=== PATIENT | male | born 1995 | race Caucasian/White ===

== ENCOUNTER 2016-06-22 08:51 | Emergency (ER) | payer BC, OTHER ==
[~2016-06-22] VITALS: Ht 180.3 cm; Wt 36.8 kg
[~2016-06-22 08:51] MED LIST: ALBUAER2 INH; ATV/1 PO; LEVO125T4 PO; LURA40TA PO
[2016-06-22 08:58] VITALS: Ht 180.3 cm; Wt 36.8 kg
[2016-06-22] MEDS ORDERED: OXYCODONE/ACETAMINOPHEN 5-325 TAB PO STA (09:19)
--- NOTE | 2016-06-22 09:43 | DIAGNOSTIC IMAGING REPORT ---
LEFT SHOULDER MIN 2 VIEWS ROUTINE CLINICAL HISTORY: Left shoulder pain. COMPARISON STUDY: None. FINDINGS: There is a left anterior shoulder dislocation. There may be a small fracture at the anterior-inferior glenoid rim consistent with a Bankart injury. A left clavicle is intact. IMPRESSION: 1. Left anterior shoulder dislocation. 2. Possible small bony Bankart fracture. Electronically signed by: Arpan Rubio M.D. 06/22/2016 9:41 AM Dictated Date/Time: 06/22/2016 9:40 AM
[2016-06-22] MEDS ORDERED: ONDANSETRON INJ 2 MG/ML 2 ML VIAL IV STA (09:48)
[2016-06-22] MEDS ORDERED: SPRIN/30 INH (09:56)
[2016-06-22] MEDS ORDERED: BUSP-8 PO (09:56)
[2016-06-22] MEDS ORDERED: ALBU18002 INH (09:56)
[2016-06-22] MEDS ORDERED: SODIUM CHLORIDE 0.9% 1000ML 1,000 ML IV ONE (10:00)
[2016-06-22] MEDS ORDERED: FENTANYL CITRATE INJ 50 MCG/1 ML 2 ML VIAL IV ONE (10:00)
--- NOTE | 2016-06-22 10:43 | DIAGNOSTIC IMAGING REPORT ---
LEFT SHOULDER 2 VIEWS HISTORY: Left shoulder post reduction. COMPARISON: None. FINDINGS: Patient is status post reduction of the left anterior shoulder dislocation. There is no fracture or dislocation. Soft tissues are unremarkable. No radiopaque foreign bodies. IMPRESSION: No fracture or dislocation within the left shoulder status post reduction. Electronically signed by: Arpan Rubio M.D. 06/22/2016 10:42 AM Dictated Date/Time: 06/22/2016 10:41 AM
[2016-06-22] MEDS ORDERED: HYDR-5688 PO (11:14)
[2016-06-22 11:26] VITALS: BP 146/83; PULSE 99; TEMP 36.8; O2SAT 96
--- NOTE | 2016-06-22 16:17 | EMERGENCY ROOM VISIT NOTE ---
ED Visit Note First contact with patient: 09:14 Anterior Shoulder Dislocation Reduction Indication: anterior shoulder dislocation Verbal consent obtained. Risks and benefits were explained with the usual customary discussion. A time out was taken. Neurovascular examination before the procedure revealed numbness over the anterior deltoid otherwise neurovascularly intact. The left shoulder glenohumeral dislocation was reduced by placing the patient prone and applying gentle downward inline traction on the humerus, with the elbow flexed at 90 degrees, while scapula manipulation was applied. This resulted in an easy reduction without complication. Neurovascular examination after the procedure revealed neurovascularly intact. The patient had significant pain relief and tolerated the procedure well.
--- NOTE | 2016-06-23 12:15 | EMERGENCY ROOM VISIT NOTE ---
ED Visit Note First contact with patient: 09:14 Chief Complaint: Left shoulder pain. History of Present Illness: Mr. Baugh is a 21-year-old white male who ambulates into the ED complaining of left shoulder pain. Historically patient does report he has no significant left shoulder injuries but does report he has had a previous dislocation of his right shoulder. Patient reports he was bench pressing approximately 200 pounds last night, approximately 14 hours ago, felt a popping sensation in his left shoulder and immediately had pain. Since that time his pain has been constant and gradually increasing in intensity. He describes it as a sharp discomfort. He rates his discomfort 8/10. His pain is nonradiating. Palpation of the glenoid humeral joint and any attempts to move the glenoid humeral joint increases his discomfort. He has not identified any alleviating factors related to the pain. He reports she's taken 2 doses of 800 mg of ibuprofen since the injury occurred and has had no relief. He does feel like the pain he is experiencing is similar to his previous right shoulder dislocation. Associated with his pain he reports a mild numbness sensation of the upper arm and paresthesias over the radial distribution of the posterior hand. He denies fevers, chills, skin eruptions, skin color changes, neck pain, recent direct neck or shoulder trauma, elbow pain, forearm pain, left hand weakness, abdominal pain, nausea, vomiting, shortness of breath. Review of Systems: As noted above in history of present illness. 8 body systems were reviewed and found to be negative as noted above. Past Medical History: Asthma. Current Medications: Albuterol Allergies to Medications: Holly, Zyrtec, Claritin. Social History: Patient is currently employed; he feels safe in his home environment; he denies tobacco use; he admits to alcohol use. Physical Examination: Vital Signs: Date Time Temp Pulse Resp B/P Pulse Ox O2 Delivery O2 Flow Rate FiO2 06/22/16 11:26 36.8 99 16 146/83 96 06/22/16 10:47 99 16 146/83 96 Room Air 06/22/16 08:58 36.8 109 20 156/96 95 Room Air GENERAL: 21-year-old male in moderate distress due to pain, nontoxic-appearing, afebrile and hemodynamically stable. NEUROLOGICAL: Awake, alert and oriented to person, place and time. Answering questions appropriately and following commands. Normal gait. SKIN: Warm, dry and pink. No soft tissue trauma noted. BACK: No tenderness over the bony cervical or thoracic spine. Full range of motion of the cervical spine. THORAX: Lungs sounds are clear to auscultation and equal bilaterally with symmetrical chest wall. No wheezing, rales or rhonchi. No crepitus, tenderness , subcutaneous air or deformities noted. LEFT UPPER EXTREMITY: Obvious deformity of the glenoid humeral joint with the radial head displaced anteriorly and slightly inferiorly. There is also tenderness throughout the glenoid humeral joint. He has no tenderness over the clavicle or the acromioclavicular joint. No tenderness over the scapula. No tenderness extending from the mid humerus, through the elbow, forearm and hand. With the shoulder stabilize he does have flexion and extension of the elbow, pronation and supination of the forearm, flexion, extension and radial ulnar deviation of the and flexion and extension of all finger joints. On sensory testing he does have decreased sensation to light touch over the lateral subdeltoid area. Although he complains of paresthesias in the hand he is able to distinguish light and sharp sensations. Radial and ulnar pulses are intact and equal bilaterally. The hand is warm and pink and capillary refill is brisk. On reevaluation after reduction patient has full return of sensation in the subdeltoid area and resolution of paresthesias in the hand prior to discharge. The hand remained warm and pink with brisk capillary refill and pulses. He continues to able to distinguish light and sharp sensations throughout the hand. ED Course: Patient is assessed as noted above. Patient was given 2 Percocet 5/325 mg tablets by mouth for pain. Left Shoulder X-Rays: Were read by myself and the radiologist and shows an anterior dislocation of the glenoid humeral joint. An IV lock was initiated and patient was hydrated with normal saline; he received 100 g of fentanyl IV and 4 mg of Zofran IV. Patient's dislocation was reduced by Dr. Franco and myself easily on the first attempt. Left Shoulder X-Rays: Were read by myself and the radiologist showing no acute fractures or dislocations; successful reduction of shoulder joint. Patient was placed in a shoulder immobilizer and educated about tonight's findings; he verbalizes understanding and agreement with this plan. Patient was educated about tonight's findings and instructed on his treatment plan; he verbalizes understanding and agreement with this plan. Clinical Impression: Left shoulder dislocation. Decision-Making: Glenoid humeral dislocation, acromioclavicular joint separation , humeral head fracture and other causes. Disposition: Patient discharged home in stable condition accompanied by male friend; prior to departure he was reassessed and subjectively reported he was feeling better and rated his discomfort 6/10. Plan: Comfort measures including rest, ice, immobilizer use and a sliding pain medication scale of ibuprofen, acetaminophen and [place] were discussed with the patient. Patient was encouraged to follow-up with his medical care evaluation specialist for definitive care and treatment. Patient was encouraged return the ED for worsening/uncontrolled pain, redislocation, arm weakness/numbness/tingling or any new/concerning symptoms.
== END 2016-06-22 11:29 | disposition home or self-care (01) ==
LOC: C.EDB 08:52
DX: S43.015A Anterior dislocation of left humerus, initial encounter (principal); J45.909 Unspecified asthma, uncomplicated; Y93.B1 Activity, exercise machines primarily for muscle strengthening; Y99.8 Other external cause status

== ENCOUNTER → 2016-06-27 | Outpatient (CLI) | payer OTHER ==
[~2016-06-27] MED LIST changes: +ALBU18002 INH; -ALBUAER2 INH; -ATV/1 PO; +BUSP-8 PO; +HYDR-5688 PO; +SPRIN/30 INH
--- NOTE | 2016-06-27 13:46 | DIAGNOSTIC IMAGING REPORT ---
FLUOROSCOPICALLY GUIDED LEFT SHOULDER ARTHROGRAM PRE-MRI CLINICAL HISTORY: Left shoulder pain. History of dislocation. COMPARISON STUDY: 06/22/2016 FINDINGS: A timeout was performed. The risks of the procedure was explained the patient informed consent was obtained. The patient was prepped and draped in sterile fashion. The skin was anesthetized 1% lidocaine. A 22-gauge needle was introduced the joint space. The stylette was removed, there was evidence of a hemarthrosis. An extra of Optiray 300 and gadolinium was instilled into the joint space. There were no immediate complications. IMPRESSION: Successful fluoroscopically guided left shoulder arthrographic injection pre-MRI. Electronically signed by: Steffen Holly M.D. 06/27/2016 1:44 PM Dictated Date/Time: 06/27/2016 1:42 PM
--- NOTE | 2016-06-27 14:20 | DIAGNOSTIC IMAGING REPORT ---
POST ARTHROGRAM MRI OF THE LEFT SHOULDER CLINICAL HISTORY: Left shoulder pain status post dislocation COMPARISON STUDY: Conventional radiographic study dated 06/22/2016 FINDINGS: Imaging was performed following a gadolinium arthrogram. Imaging was obtained in the sagittal, coronal, and axial planes. The rotator cuff tendon appears normal. The bicipital tendon appears normal. There is a Hill-Sachs deformity of the humeral head. There is a curvilinear loose body within the superior aspect of the glenohumeral joint. This may represent a fracture fragment arising from the humeral head. There is a Bankart fracture involving the anterior inferior glenoid rim. IMPRESSION: 1. Bankart fracture involving the anterior inferior glenoid rim 2. Hill-Sachs deformity involving the humeral head 3. Curvilinear loose body within the superior aspect of the glenohumeral joint. The etiology of this bony fragment is not known, but potentially arises from the humeral head. Electronically signed by: Steffen Holly M.D. 06/27/2016 2:19 PM Dictated Date/Time: 06/27/2016 2:09 PM
== END | disposition home or self-care (01) ==
LOC: C.MRIBC 12:51
PROVIDERS: ATTEND Orthopaedic Surgery
DX: S42.142A Displaced fracture of glenoid cavity of scapula, left shoulder, initial encounter for closed fracture (principal); X58.XXXA Exposure to other specified factors, initial encounter; M21.922 Unspecified acquired deformity of left upper arm; M24.012 Loose body in left shoulder

== ENCOUNTER 2018-09-28 06:29 | Inpatient (IN) ==
--- OUTSIDE RECORDS SUMMARY | 2018-09-28 06:32 | External Medical Summary | Continuity of Care Document ---
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) Allergies and Adverse Reactions Holly TABS (Allergy) Reaction: Hives Claritin TABS (Allergy) Reaction: Hives ZyrTEC Allergy TABS (Allergy) Reaction: Hives Medications Latuda 40 MG Oral Tablet Refills: 0 Albuterol AERS Refills: 0 Procedures History of Shoulder Repair Status: Compl eted History of Nose Surgery Status: Complete d Immunizations Immunizations not documented Family History Grandfather Family history of malignant neoplasm of kidney (V16.51) (Z80 .51) Status: Active aunt Family history of Colon cancer (153.9) (C18.9) Status: Activ e Social History - Smoking Status Never smoker Plan of Treatment Planned Observations Planned Goals not documented Results No Known Results Results not documented Encounters Appointment; Liam Catherine M.D. 04-Dec-2015 12:45 Encounter Diagnosis: Problem not documented
[2018-09-28] MEDS ORDERED: LORazepam 2 MG/4 ML VIAL IV STA ×3 (06:42→12:43)
[2018-09-28] MEDS ORDERED: SODIUM CHLORIDE 0.9% 1000ML 1,000 ML IV SCH (06:45)
[2018-09-28] MEDS ORDERED: MULTI-VITAMIN INFUSION 10 ML, THIAMINE HCL 100 MG, FOLIC ACID 1 MG in SODIUM CHLORIDE 0... IV SCH (06:45)
[2018-09-28 07:16] LABS: Basophils # (auto) 0.04 K/uL (0-0.2); Basophils % (auto) 1.2 %; Eosinophils # (auto) 0.07 K/uL (0-0.5); Eosinophils % (auto) 2.1 %; Hematocrit (blood only) 44.4 % (42-52); Hemoglobin 16.6 g/dL (14.0-18.0); Immature Granulocytes # (auto) 0.01 K/uL (0.00-0.02); Immature Granulocytes % (auto) 0.3 %; Lymphocytes # (auto) 1.36 K/uL (1.2-3.4); Lymphocytes % (auto) 40.6 %; Mean Corpuscular Hgb Conc 37.4 g/dL (32-36); Mean Corpuscular Volume 94.1 fL (80-100); Mean Platelet Volume 9.4 fL (7.4-10.4); Monocytes # (auto) 0.24 K/uL (0.11-0.59); Monocytes % (auto) 7.2 %; Neutrophils # (auto) 1.63 K/uL (1.4-6.5); Neutrophils % (auto) 48.6 %; Platelet Count 221 K/uL (130-400); RDW Coefficient of Variation 12.9 % (11.5-14.5); RDW Standard Deviation 44.6 fL (36.4-46.3); Red Blood Count 4.72 M/uL (4.7-6.1); White Blood Count 3.35 K/uL (4.8-10.8)
[2018-09-28 07:40] LABS: Salicylate < 1.7 mg/dl (2.8-20)
[2018-09-28 07:46] LABS: Albumin Level 4.1 gm/dl (3.4-5.0); BUN Creatinine Ratio 6.6 (10-20); Calcium 9.1 mg/dl (8.5-10.1); Creatinine Clr Calc Pharmacy 94.4 ml/min; Est GFR (African American) 71.6; Est GFR (Non-African American) 61.7
[2018-09-28 07:48] LABS: Acetaminophen < 2 ug/ml (10-30)
[2018-09-28 07:50] LABS: Albumin Globulin Ratio 1.1 (0.9-2); Bilirubin,Total 0.9 mg/dl (0.2-1); Globulin 3.7 gm/dl (2.5-4.0); Total Protein 7.8 gm/dl (6.4-8.2)
[2018-09-28 08:17] LABS: T4 Free Thyroxine 1.01 ng/dl (0.8-1.6)
[2018-09-28 08:21] LABS: Potassium 3.6 mmol/L (3.5-5.1)
[2018-09-28 09:28] LABS: Appearance Urine Clear (Clear); Bilirubin Urine Negative (Negative); Blood Urine Negative (Negative); Color Urine Yellow; Glucose Urine UA Negative (Negative); Ketones Urine Negative (Negative); Leukocyte Esterase Urine Negative (Negative); Nitrite Urine Negative (Negative); Protein Urine Negative (Negative); Specific Gravity Urine 1.021 (1.000-1.030); Urobilinogen Urine Negative (Negative)
[2018-09-28 10:10] LABS: Amphetamines+Metham, Urine Neg (Neg); Barbiturates, Urine Neg (Neg); Benzodiazepine, Urine Neg (Neg); Cocaine, Urine Neg (Neg); MDMA (Ecstacy), Urine Neg (Neg); Methadone, Urine Neg (Neg); Opiate, Urine Neg (Neg); Phencyclidine, Urine Neg (Neg)
[2018-09-28] MEDS ORDERED: cloNIDine HCl 0.1 MG TAB PO ONE (11:14)
--- NOTE | 2018-09-28 12:01 | History & Physical Report ---
Date of Service September 28, 2018 Assessment & Plan (1) Alcohol withdrawal: - Received IV banana bag and IV Ativan 4 mg while in the ER - Start MVI, PO folic acid and thiamine - librium taper and IV ativan prn to avoid further withdrawal sx - tremor has improved, anxiety is worse now with admission. - Pt was referred for inpatient rehab - there are detox beds available at [facility] for the patient to go there today however the patient is refusing to go there due to financial situation and not being able to be off work. He states their detox program of even 5 days is too long to be out of work, and would not be intrested in completing their 28 day program for rehab afterwards. - List of facilities for future outpatient has been provided to the patient - Follows with Traci Watkins for depression and anxiety - Recommend he re-establishes care with counselor for support and to develope more coping skills regarding alcoholism - Alcohol cessation encouraged (2) Hypertension: - Continue clonidine for HTN, seconday to acute alcohol withdrawal. (3) Elevated transaminase level: - Monitor am LFTs - Secondary to etoh use as above. (4) Hypothyroidism: - TSH elevated upon admission, continue levothyroxine 125 mg daily. Follow up TSH in 3 mo. (5) DVT prophylaxis: - teds, ambulatory History of Present Illness Primary Care Provider: NO PCP This is a 23-year-old male with PMHx of depression, anxiety, alcohol abuse. The patient notes that alcohol use started when he entered college at [employer]. He is now drinking 10 shots every evening to help him fall asleep. He does wake up in the morning feeling like he needs a drink and hs 2 shots or 2 beers. Patient reports having decided to stop drinking on Thursday night. Last evening however, patient had 2 beers and took ZzzQuil to help fall asleep as his anxiety, tremors, chills were so bad. The patient reported to the ER today due to increased anxiety and tremors. He has received a banana bag, and Ativan 4 mg. Patient's blood pressure is noted to be elevated as high as 181/92. He has also recently graduated from [employer]ICU and has just started a new job, and has attempted to stop drinking for this reason as well. Patient lives at home with his ricardo and her 2yo daughter. Patient denies any mood swings, anger outbursts or specific irritability regarding stopping alcohol use. He reports anxiety is much more of a problem. SHx: Patient follows with Traci Herring PA-C, at [facility] for psychiatric needs. He has also seen a counselor at [facility] in the past for alcohol use, but has not followed him for a few years. Patient denies any recent medication changes other than increased dose of BuSpar for his anxiety. The patient reports he is not interested in going to an inpatient rehab facility directly from our ER as he does not have the money, nor at the time to take off from his new job for this. Patient is requesting admission here and will proceed with outpatient rehab on his own. Patient has been given a list of inpatient and outpatient facilities addresses and numbers. Allergies Allergy/AdvReac Type Severity Reaction Status Date / Time cetirizine Allergy Intermediate hives Verified 09/28/18 07:23 fexofenadine Allergy Intermediate hives Verified 09/28/18 07:23 loratadine Allergy Intermediate hives Verified 09/28/18 07:23 Home Medications Home Medications Medication Instructions Recorded Confirmed Type albuterol sulfate 2 puff INHALATION QID PRN 09/28/18 09/28/18 History buspirone 10 mg PO BID 09/28/18 09/28/18 History clonazepam 1 mg PO DAILY PRN 09/28/18 09/28/18 History guanfacine 0 mg PO DAILY 09/28/18 09/28/18 History levothyroxine 125 mcg PO DAILY 09/28/18 09/28/18 History lurasidone [Latuda] 60 mg PO DAILY 09/28/18 09/28/18 History omeprazole magnesium [Prilosec OTC] 20 mg PO DAILY PRN 09/28/18 09/28/18 History tiotropium bromide [Spiriva with 1 cap INHALATION HS 09/28/18 09/28/18 History HandiHaler] Past Med/Surg History Medical History Hypothyroidism Elevated transaminase level Alcohol withdrawal (Acute) Hypertension (Acute) Creatinine elevation (Chronic) Asthma Anxiety (Chronic) Surgical History History of arthroscopy of shoulder History of nasal surgery Social History Preferred Language: Setswana Communication Ability: Effective Beliefs That Will Affect Care: None Current Living Situation: Significant Other Current Living Situation Comment: holden s/o Other Information That Helps Us Care for You: No Feels Safe at Home: Yes Safety Concerns: Feels Safe At This Time Smoking Status: Never smoker Hx Alcohol Use: Yes Alcohol type: beer and hard liquor Alcohol Intake Frequency Comment: 6-8 Hx Substance Use: No Review of Systems Review of Systems: Constitutional: As per HPI Eyes: No diplopia, no worsening or blurred vision ENT: normal hearing, no trouble swallowing Respiratory: No cough, sputum, dyspnea at rest or on exertion Cardiovascular: No chest pain, tightness or palpitations Abdomen: No pain, + nausea, no vomiting, diarrhea or constipation Musculoskeletal: No joint pain, calf pain, swelling Neurologic: No weakness, numbness/tingling, or balance problems Psychiatric: + Anxiety or depression Skin: No rash or itch Physical Exam Physical Exam: General: awake, alert, + anxious, + overweight with BMI of 35 Head: Normocephalic, atraumatic ENT: PERRL, EOMI, no pharyngeal exudate, mucous membranes moist Chest: Clear to auscultation, on room air, no adventitious breath sounds Cardiac:Tachycardic, HR in 90s to 100s, no murmur, no JVD, normal peripheral pulses, good capillary refill Abdominal: NABS x 4 quadrants, soft, nontender to palpation, no rebound, guarding or tenderness Extremities: Normal inspection, no peripheral edema or erythema, calfs nontender to palpation Psych: Normal mood and affect Neuro: AAO x 3, strength intact bilaterally and related 5/5, no motor deficits, speech is clear, no peripheral sensory deficits Results & Data Vital Signs (Past 12 Hours) Vital Signs Temp Pulse Pulse Resp BP BP Pulse Ox 09/28/18 11:25 96 H 22 181/92 H 98 09/28/18 10:40 89 26 H 179/133 H 98 09/28/18 09:43 92 H 20 166/119 H 98 09/28/18 08:21 85 22 160/110 H 98 09/28/18 07:24 94 H 19 162/114 H 95 09/28/18 06:54 90 20 177/118 H 98 09/28/18 06:32 36.8 C 90 20 175/122 H 98 Code Status & VTE Plan Code Status Full Code Supervising Physician Co-Signing Physician Notes Pt seen/examined following MICHAEL Bowen. Orders and plan of admission formulated with MICHAEL. 23 y/o M Hx ETOH abuse, depression. Presenting for symptoms related to withdrawal. The pt was examined by the medical team and offered admission to [facility] which he declined as he thought he would be there for too long. He is starting a new job and hoping for a more rapid detox. I ahd infomed him that we did not do anything differnetly in the hospital that would expedite the process. He has mild LFT elevation on labs and a creatinine which is chronically over 1.5 with a normal GFR. He claims he has 6-8 alcoholic beverages per day. OE AAO x 3 S1,2 R CTAB NT, ND No CCE No deficits No tremors after receiving Ativan P: Admitted for Detox - Lorazepam, Librium, Thiamine, Folic, [id number] Cont Latuda for Depression Psychiatry consulted (1) Alcohol withdrawal Complication of substance-induced condition: with unspecified complication Qualified Code(s): F10.239 - Alcohol dependence with withdrawal, unspecified (2) Hypertension Hypertension type: unspecified Qualified Code(s): I10 - Essential (primary) hypertension
[2018-09-28] MEDS ORDERED: ONDANSETRON INJ 2 MG/ML 2 ML VIAL IV PRN (13:16)
[2018-09-28] MEDS ORDERED: ALBUTEROL HFA 8 GM INHALER INH PRN (13:16)
[2018-09-28] MEDS ORDERED: ACETAMINOPHEN 500 MG TAB PO PRN (13:16)
--- NOTE | 2018-09-28 13:19 | History & Physical Report ---
Date of Service September 28, 2018 History of Present Illness Chief Complaint: Alcohol withdrawal Primary Care Provider: KATALINA PCP 23 y/o M Hx Depression, asthma, hypothyroidism, ETOH abuse. Presenting with early withdrawal symptoms requesting detox. This pt was offered direct admission to [facility] for detox followed by rehab. He declined as he is starting a new job and was hoping to get out of the hospital in a few days. The minimum stay at [facility] is apparently 5 days. PMH: 1) Depression 2) Hypothryroidism 3) Asthma 4) ETOH abuse Social: States he has 6-8 alcoholic beverages daily. Family: Allergies Allergy/AdvReac Type Severity Reaction Status Date / Time cetirizine Allergy Intermediate hives Verified 09/28/18 07:23 fexofenadine Allergy Intermediate hives Verified 09/28/18 07:23 loratadine Allergy Intermediate hives Verified 09/28/18 07:23 Home Medications Home Medications Medication Instructions Recorded Confirmed Type albuterol sulfate 2 puff INHALATION QID PRN 09/28/18 09/28/18 History buspirone 10 mg PO BID 09/28/18 09/28/18 History clonazepam 1 mg PO DAILY PRN 09/28/18 09/28/18 History guanfacine 0 mg PO DAILY 09/28/18 09/28/18 History levothyroxine 125 mcg PO DAILY 09/28/18 09/28/18 History lurasidone [Latuda] 60 mg PO DAILY 09/28/18 09/28/18 History omeprazole magnesium [Prilosec OTC] 20 mg PO DAILY PRN 09/28/18 09/28/18 History tiotropium bromide [Spiriva with 1 cap INHALATION HS 09/28/18 09/28/18 History HandiHaler] Past Med/Surg History Medical History Creatinine elevation (Chronic) Asthma Anxiety (Chronic) Surgical History History of arthroscopy of shoulder History of nasal surgery Social History Preferred Language: Icelandic Communication Ability: Effective Beliefs That Will Affect Care: None Current Living Situation: Significant Other Current Living Situation Comment: holden s/o Other Information That Helps Us Care for You: No Feels Safe at Home: Yes Safety Concerns: Feels Safe At This Time Smoking Status: Never smoker Hx Alcohol Use: Yes Alcohol type: beer and hard liquor Alcohol Intake Frequency Comment: 6-8 Hx Substance Use: No Review of Systems Gen: Denies fevers, night sweats, rigors, fatigue, malaise, weight loss/gain ENT: Denies congestion, throat pain, hearing loss Eyes: Denies acute visual changes CV: Denies CP, palpitations Pulmonary: Denies SOB, cough, wheezing GI: Denies N/V, diarrhea, constipation Neuro: Denies acute or unilateral weakness, acute gait impairment, headache or acute visual changes Musculoskeletal: Denies joint pain, inflammation Endocrine: Denies polydipsia, polyuria Skin: Denies acute rashe or ulcers Physical Exam Physical Exam: General: AAO x 3, no distress ENT: No erythema or exudates, no thrush Eyes: RAGHAVENDRA, EOMI Head and neck: Normocephalic, atraumatic, No JVD, neck is supple. Chest/heart: Nontender, S1,2, RRR, no murmurs, no gallops Lungs: CTAB, no wheezing or crackles Abdomen: Nontender, nondistended, BS+ Neuro: AAO x 3, speech is clear, no unilateral weakness or loss of sensation, coordination intact Musculoskeletal: No joint inflammation, muscle tenderness, FROM Skin: No acute rashes or ulcers Extremities: No clubbing, cyanosis, edema Results & Data Vital Signs (Past 12 Hours) Vital Signs Temp Pulse Pulse Resp BP BP Pulse Ox 09/28/18 12:24 99 H 18 163/99 H 97 09/28/18 11:25 96 H 22 181/92 H 98 09/28/18 10:40 89 26 H 179/133 H 98 09/28/18 09:43 92 H 20 166/119 H 98 09/28/18 08:21 85 22 160/110 H 98 09/28/18 07:24 94 H 19 162/114 H 95 09/28/18 06:54 90 20 177/118 H 98 09/28/18 06:32 98.2 F 90 20 175/122 H 98
[2018-09-28] MEDS: LORazepam 2 MG/4 ML VIAL IV PRN ×3 (13:56→23:41)
--- NOTE | 2018-09-28 14:00 | Emergency Department Note ---
Entered by Marissa Fitzgerald acting as a scribe for Vania Glaser MD History of Present Illness General Chief complaint: Alcohol Withdrawal Stated complaint: ANXIETY,NAUSEA Source: patient Mode of arrival: ambulatory Limitations: no limitations History of Present Illness Provider complaint: alcohol withdrawal Onset (ago): day(s) (yesterday) Location: head (generalized) Pain Consistency: + other (episode) Quality: + other (suspected) Relieved By: not by other (alcohol) Associated symptoms: + other (shaky, restless, palpitations) Treatments prior to arrival: other (alcohol) The patient is a 23 year old male who presents to the ED with complaints of a suspected alcohol withdrawal that began about 2 days ago. The patient reports that he drinks around 6-8 drinks daily and 2 days ago "decided it was time to quit." He states that since quitting, he has been anxious, shaky, restless, and "can feel his heart racing." He notes that he had 1 drink last night around 2200 to try and alleviate his symptoms but reports it did not help. He denies any tobacco or substance use. He states that he has a history of asthma and anxiety. Home Medications Home Medications Medication Instructions Recorded Confirmed Type Latuda 60 mg PO DAILY 09/28/18 09/28/18 History Prilosec OTC 20 mg PO DAILY PRN 09/28/18 09/28/18 History Spiriva with HandiHaler 1 cap INHALATION HS 09/28/18 09/28/18 History albuterol sulfate 2 puff INHALATION QID PRN 09/28/18 09/28/18 History buspirone 10 mg PO BID 09/28/18 09/28/18 History clonazepam 1 mg PO DAILY PRN 09/28/18 09/28/18 History chlordiazepoxide HCl 25 mg PO TID #13 cap 09/30/18 Rx folic acid 1 mg PO QAM 30 Days #30 tab 09/30/18 Rx levothyroxine 125 mcg PO DAILY 30 Days #30 tab 09/30/18 Rx metoprolol succinate 25 mg PO DAILY #30 ea 09/30/18 Rx thiamine HCl (vitamin B1) [Vitamin 100 mg PO QAM 30 Days #30 tab 09/30/18 Rx B-1] Allergies Allergy/AdvReac Type Severity Reaction Status Date / Time cetirizine Allergy Intermediate hives Verified 09/28/18 07:23 fexofenadine Allergy Intermediate hives Verified 09/28/18 07:23 loratadine Allergy Intermediate hives Verified 09/28/18 07:23 Past Med/Surg History Medical History Hypothyroidism Alcohol withdrawal (Acute) Hypertension (Acute) Anxiety (Chronic) Creatinine elevation Surgical History History of arthroscopy of shoulder History of nasal surgery Social History Preferred Language: Kinyarwanda Communication Ability: Effective Beliefs That Will Affect Care: None Current Living Situation: Significant Other Current Living Situation Comment: holden s/o Other Information That Helps Us Care for You: No Feels Safe at Home: Yes Safety Concerns: Feels Safe At This Time Smoking Status: Never smoker Hx Alcohol Use: Yes Alcohol type: beer and hard liquor Alcohol Intake Frequency Comment: 6-8 Hx Substance Use: No Review of Systems See HPI for pertinent positives & negatives. and A total of 10 systems reviewed and were otherwise negative Physical Exam Vital Signs Vital Signs - 24 hr 09/30/18 07:00 09/30/18 07:36 09/30/18 09:23 Temperature 36.4 C L Temperature Source Oral Pulse Rate 72 Pulse Rate [Finger] 96 H Respiratory Rate 20 Blood Pressure [Left Arm] 144/101 H Blood Pressure [Right Arm] 148/99 H Blood Pressure Mean [Left Arm] 115 Blood Pressure Mean [Right Arm] 115 Blood Pressure Position [Left Arm] Sitting Blood Pressure Position [Right Arm] Sitting Pulse Oximetry 97 Oxygen Delivery Method Room Air 09/30/18 11:53 09/30/18 15:05 09/30/18 15:26 Temperature 36.5 C 36.4 C L 36.4 C L Temperature Source Oral Oral Pulse Rate Pulse Rate [Finger] 62 99 H 99 H Respiratory Rate 18 18 18 Blood Pressure [Left Arm] 155/117 H 155/117 H Blood Pressure [Right Arm] 138/91 138/91 Blood Pressure Mean [Left Arm] 129 Blood Pressure Mean [Right Arm] 106 Blood Pressure Position [Left Arm] Lying Blood Pressure Position [Right Arm] Lying Pulse Oximetry 95 98 98 Oxygen Delivery Method Room Air 09/30/18 19:01 Temperature 36.4 C L Temperature Source Pulse Rate Pulse Rate [Finger] 99 H Respiratory Rate 18 Blood Pressure [Left Arm] 155/117 H Blood Pressure [Right Arm] 138/91 Blood Pressure Mean [Left Arm] Blood Pressure Mean [Right Arm] Blood Pressure Position [Left Arm] Blood Pressure Position [Right Arm] Pulse Oximetry 98 Oxygen Delivery Method Vital signs reviewed. The patient is tachycardic and hypertensive. General: Anxious appearing, in no significant distress. HEENT: No scleral icterus, PERRLA, neck supple. Atraumatic. Cardiovascular: Tachycardic, no extra sounds. Pulmonary: Clear to auscultation bilaterally, normal work of breathing. Abdomen: Soft, nontender, nondistended, positive bowel sounds. Musculoskeletal: Atraumatic, no peripheral edema. Neurologic: Patient awake alert and oriented x 3, full strength in all 4 extremities. Cranial nerves 2 through 12 grossly intact. Some tremor noted, particularly the BUE Skin: Warm, diaphoretic, no rash Course 0652: Past medical records reviewed. The patient was evaluated in room B2. A complete history and physical examination was performed. 1019: I updated the patient on his results and he is agreeable with the treatment plan. 1034: I discussed the patients case with Veronica Bowen PA-C [facility] Hospitalist. She will evaluate the patient for further management. Administered Medications Discontinued Medications Buspirone HCl (Buspar) 10 mg PO BID [facility] Stop: 10/28/18 20:59 Last Admin: 09/30/18 07:52 Dose: 10 mg Documented by: [id number] Admin: 09/29/18 20:55 Dose: 10 mg Documented by: [id number] Admin: 09/29/18 07:53 Dose: 10 mg Documented by: [id number] Admin: 09/28/18 21:04 Dose: 10 mg Documented by: [id number] Chlordiazepoxide HCl (Librium) 25 mg PO TID VONNIE Stop: 10/28/18 13:59 Last Admin: 09/30/18 14:38 Dose: 25 mg Documented by: [id number] Admin: 09/30/18 07:54 Dose: 25 mg Documented by: [id number] Admin: 09/29/18 20:55 Dose: 25 mg Documented by: [id number] Admin: 09/29/18 13:43 Dose: 25 mg Documented by: [id number] Admin: 09/29/18 08:01 Dose: 25 mg Documented by: [id number] Admin: 09/28/18 21:04 Dose: 25 mg Documented by: [id number] Admin: 09/28/18 14:34 Dose: 25 mg Documented by: [id number] Chlordiazepoxide HCl (Librium) 25 mg PO NOW ONE Stop: 09/30/18 17:18 Last Admin: 09/30/18 17:40 Dose: 25 mg Documented by: [id number] Clonidine HCl (Catapres) 0.2 mg PO NOW ONE Stop: 09/28/18 11:15 Last Admin: 09/28/18 11:48 Dose: 0.2 mg Documented by: [id number] Clonidine HCl (Catapres) 0.1 mg PO Q8H PRN PRN Reason: SBP > 165 Stop: 10/28/18 13:15 Last Admin: 09/30/18 18:29 Dose: 0.1 mg Documented by: [id number] Admin: 09/29/18 15:23 Dose: 0.1 mg Documented by: [id number] Admin: 09/28/18 23:39 Dose: 0.1 mg Documented by: [id number] Folic Acid (Folvite) 1 mg PO QAM [facility] Stop: 10/28/18 14:29 Last Admin: 09/30/18 07:52 Dose: 1 mg Documented by: [id number] Admin: 09/29/18 07:51 Dose: 1 mg Documented by: [id number] Admin: 09/28/18 15:50 Dose: 1 mg Documented by: [id number] Lorazepam (Ativan) 2 mg in 4 mls @ 4 mls/min IV NOW STA Stop: 09/28/18 06:43 Last Admin: 09/28/18 07:17 Dose: 4 mls/min Documented by: [id number] Sodium Chloride (Nss 1000ml) 1,000 mls @ 999 mls/hr IV .Q1H1M [facility] Stop: 09/28/18 07:45 Last Infusion: 09/28/18 08:15 Dose: 0 mls/hr Documented by: [id number] Admin: 09/28/18 07:14 Dose: 999 mls/hr Documented by: [id number] Multivitamins 10 ml/ Thiamine HCl 100 mg/ Folic Acid 1 mg/Sodium Chloride 1,011.2 mls @ 1,011.2 mls/hr IV .Q1H VONNIE Stop: 09/28/18 07:44 Last Infusion: 09/28/18 08:15 Dose: 0 mls/hr Documented by: [id number] Admin: 09/28/18 07:14 Dose: 1,011.2 mls/hr Documented by: [id number] Lorazepam (Ativan) 2 mg in 4 mls @ 4 mls/min IV NOW STA Stop: 09/28/18 08:24 Last Admin: 09/28/18 09:42 Dose: 4 mls/min Documented by: [id number] Lorazepam (Ativan) 2 mg in 4 mls @ 4 mls/min IV NOW STA Stop: 09/28/18 12:44 Last Admin: 09/28/18 14:13 Dose: Not Given Documented by: [id number] Lorazepam (Ativan) 2 mg in 4 mls @ 4 mls/min IV Q4H PRN PRN Reason: Alcohol Withdrawal Stop: 10/28/18 13:15 Last Admin: 09/29/18 22:06 Dose: 4 mls/min Documented by: [id number] Admin: 09/29/18 17:59 Dose: 4 mls/min Documented by: [id number] Admin: 09/29/18 14:12 Dose: 4 mls/min Documented by: [id number] Admin: 09/29/18 07:54 Dose: 4 mls/min Documented by: [id number] Admin: 09/28/18 23:41 Dose: 4 mls/min Documented by: [id number] Admin: 09/28/18 19:21 Dose: 4 mls/min Documented by: [id number] Admin: 09/28/18 13:56 Dose: 4 mls/min Documented by: [id number] Potassium Chloride/Dextrose/Sod Cl (D5nss + 20meq Kcl) 20 meq in 1,000 mls @ 10 0 mls/hr IV .Q10H VONNIE Stop: 09/29/18 19:15 Last Infusion: 09/29/18 12:28 Dose: 0 mls/hr Documented by: [id number] Admin: 09/29/18 07:54 Dose: 100 mls/hr Documented by: [id number] Infusion: 09/29/18 07:54 Dose: 100 mls/hr Documented by: [id number] Admin: 09/28/18 23:39 Dose: 100 mls/hr Documented by: [id number] Infusion: 09/28/18 23:39 Dose: 100 mls/hr Documented by: [id number] Admin: 09/28/18 14:45 Dose: 100 mls/hr Documented by: [id number] Levothyroxine Sodium (Synthroid) 125 mcg PO DAILYBB [facility] Stop: 10/29/18 06:29 Last Admin: 09/30/18 07:31 Dose: 125 mcg Documented by: [id number] Admin: 09/29/18 05:47 Dose: 125 mcg Documented by: [id number] Lurasidone HCl (Latuda) 60 mg PO DAILY [facility] Stop: 10/29/18 08:59 Last Admin: 09/29/18 10:31 Dose: Not Given Documented by: [id number] Lurasidone HCl (Latuda) 60 mg PO [facility] Stop: 10/29/18 20:59 Last Admin: 09/29/18 20:56 Dose: 60 mg Documented by: [id number] Metoprolol Succinate (Toprol Xl) 25 mg PO QAM [facility] Stop: 10/30/18 15:29 Last Admin: 09/30/18 15:34 Dose: 25 mg Documented by: [id number] Pantoprazole Sodium (Protonix) 40 mg PO QA PRN PRN Reason: Heartburn Stop: 10/28/18 14:29 Last Admin: 09/29/18 07:53 Dose: 40 mg Documented by: [id number] Potassium Chloride (Klor-Con M20) 20 meq PO NOW STA Stop: 09/30/18 09:17 Last Admin: 09/30/18 10:56 Dose: 20 meq Documented by: [id number] Thiamine HCl (Vitamin B-1) 100 mg PO QAM [facility] Stop: 10/28/18 14:29 Last Admin: 09/30/18 07:52 Dose: 100 mg Documented by: [id number] Admin: 09/29/18 07:53 Dose: 100 mg Documented by: [id number] Admin: 09/28/18 15:50 Dose: 100 mg Documented by: [id number] Tiotropium [place] (Spiriva) 1 puffs INH [facility] Stop: 10/28/18 20:59 Last Admin: 09/29/18 20:56 Dose: 1 puffs Documented by: [id number] Admin: 09/28/18 21:04 Dose: 1 puffs Documented by: [id number] Medical Decision Making Differential Diagnosis Differential diagnosis includes: toxicologic, infection, hypoglycemia, electrolyte abnormalities, cardiac sources, intracerebral event, neurologic, alcohol withdrawal, as well as others were entertained. Medical Records Attestation: I reviewed the patient's medical records. Home Medications Current Medication List: was personally reviewed by me Laboratory Data Attestation: I reviewed the patient's lab results. Result diagrams: 09/29/18 07:28 09/30/18 07:36 Lab Results 09/28/18 09/28/18 09/28/18 Range/Units 07:02 07:02 07:02 WBC 3.35 L (4.8-10.8) K/uL RBC 4.72 (4.7-6.1) M/uL Hgb 16.6 (14.0-18.0) g/dL Hct 44.4 (42-52) % MCV 94.1 (80-100) fL MCH 35.2 H (25-34) pg MCHC 37.4 H (32-36) g/dL RDW Std Deviation 44.6 (36.4-46.3) fL RDW Coeff of Ros[place] 12.9 (11.5-14.5) % Plt Count 221 (130-400) K/uL MPV 9.4 (7.4-10.4) fL Immature Gran % (Auto) 0.3 % Neut % (Auto) 48.6 % Lymph % (Auto) 40.6 % [place] % (Auto) 7.2 % Eos % (Auto) 2.1 % Baso % (Auto) 1.2 % Immature Gran # (Auto) 0.01 (0.00-0.02) K/uL Neut # (Auto) 1.63 (1.4-6.5) K/uL Lymph # (Auto) 1.36 (1.2-3.4) K/uL [place] # (Auto) 0.24 (0.11-0.59) K/uL Eos # (Auto) 0.07 (0-0.5) K/uL Baso # (Auto) 0.04 (0-0.2) K/uL Sodium 137 (136-145) mmol/L Potassium (3.5-5.1) mmol/L Chloride 101 (98-107) mmol/L Carbon Dioxide 25 (21-32) mmol/L Anion Gap 11.0 (3-11) BUN 10 (7-18) mg/dl Creatinine 1.55 H (0.6-1.4) mg/dl Est Cr Clr Drug Dosing 94.4 ml/min Est GFR ( Amer) 71.6 Est GFR (Non-Af Amer) 61.7 BUN/Creatinine Ratio 6.6 L (10-20) Glucose 106 H (70-99) mg/dl Calcium 9.1 (8.5-10.1) mg/dl Magnesium (1.8-2.4) mg/dl Total Bilirubin 0.9 (0.2-1) mg/dl Direct Bilirubin (0-0.2) mg/dl AST (15-37) U/L ALT 164 H (12-78) U/L Alkaline Phosphatase 140 H (45-117) U/L Total Protein 7.8 (6.4-8.2) gm/dl Albumin 4.1 (3.4-5.0) gm/dl Globulin 3.7 (2.5-4.0) gm/dl Albumin/Globulin Ratio 1.1 (0.9-2) TSH 20.400 H (0.300-4.500) uIu/ml Free T4 1.01 (0.8-1.6) ng/dl Urine Color Urine Appearance (Clear) Urine pH (4.5-7.5) Ur Specific [place] (1.000-1.030) Urine Protein (Negative) Urine Glucose (UA) (Negative) Urine Ketones (Negative) Urine Blood (Negative) Urine Nitrite (Negative) Urine Bilirubin (Negative) Urine Urobilinogen (Negative) Ur Leukocyte Esterase (Negative) Salicylates < 1.7 L (2.8-20) mg/dl Urine Opiates Screen (Neg) Ur Methadone, Qual (Neg) Acetaminophen < 2 L (10-30) ug/ml Urine Barbiturates (Neg) Ur Phencyclidine (PCP) (Neg) U Amphetamin/Meth Scrn (Neg) MDMA (Ecstasy) Screen (Neg) U Benzodiazepines Scrn (Neg) Ur Cocaine Metabolite (Neg) U Marijuana (THC) Screen (Neg) Ethyl Alcohol mg/dL (0-3) mg/dl Hep Bs Antigen (Neg) Hep Bs Antibody Hep Bs Antibody, Quant (>or=10mIU/mL Immune) mIU/mL 09/28/18 09/28/18 09/28/18 Range/Units 07:02 07:59 08:45 WBC (4.8-10.8) K/uL RBC (4.7-6.1) M/uL Hgb (14.0-18.0) g/dL Hct (42-52) % MCV (80-100) fL MCH (25-34) pg MCHC (32-36) g/dL RDW Std Deviation (36.4-46.3) fL RDW Coeff of Rosas (11.5-14.5) % Plt Count (130-400) K/uL MPV (7.4-10.4) fL Immature Gran % (Auto) % Neut % (Auto) % Lymph % (Auto) % [place] % (Auto) % Eos % (Auto) % Baso % (Auto) % Immature Gran # (Auto) (0.00-0.02) K/uL Neut # (Auto) (1.4-6.5) K/uL Lymph # (Auto) (1.2-3.4) K/uL [place] # (Auto) (0.11-0.59) K/uL Eos # (Auto) (0-0.5) K/uL Baso # (Auto) (0-0.2) K/uL Sodium (136-145) mmol/L Potassium 3.6 (3.5-5.1) mmol/L Chloride (98-107) mmol/L Carbon Dioxide (21-32) mmol/L Anion Gap (3-11) BUN (7-18) mg/dl Creatinine (0.6-1.4) mg/dl Est Cr Clr Drug Dosing ml/min Est GFR ( Amer) Est GFR (Non-Af Amer) BUN/Creatinine Ratio (10-20) Glucose (70-99) mg/dl Calcium (8.5-10.1) mg/dl Magnesium (1.8-2.4) mg/dl Total Bilirubin (0.2-1) mg/dl Direct Bilirubin (0-0.2) mg/dl AST 155 H (15-37) U/L ALT (12-78) U/L Alkaline Phosphatase (45-117) U/L Total Protein (6.4-8.2) gm/dl Albumin (3.4-5.0) gm/dl Globulin (2.5-4.0) gm/dl Albumin/Globulin Ratio (0.9-2) TSH (0.300-4.500) uIu/ml Free T4 (0.8-1.6) ng/dl Urine Color Urine Appearance (Clear) Urine pH (4.5-7.5) Ur Specific [place] (1.000-1.030) Urine Protein (Negative) Urine Glucose (UA) (Negative) Urine Ketones (Negative) Urine Blood (Negative) Urine Nitrite (Negative) Urine Bilirubin (Negative) Urine Urobilinogen (Negative) Ur Leukocyte Esterase (Negative) Salicylates (2.8-20) mg/dl Urine Opiates Screen Neg (Neg) Ur Methadone, Qual Neg (Neg) Acetaminophen (10-30) ug/ml Urine Barbiturates Neg (Neg) Ur Phencyclidine (PCP) Neg (Neg) U Amphetamin/Meth Scrn Neg (Neg) MDMA (Ecstasy) Screen Neg (Neg) U Benzodiazepines Scrn Neg (Neg) Ur Cocaine Metabolite Neg (Neg) U Marijuana (THC) Screen Neg (Neg) Ethyl Alcohol mg/dL 11.8 H (0-3) mg/dl Hep Bs Antigen (Neg) Hep Bs Antibody Hep Bs Antibody, Quant (>or=10mIU/mL Immune) mIU/mL 09/28/18 09/29/18 09/29/18 Range/Units 08:45 07:28 07:28 WBC 3.83 L (4.8-10.8) K/uL RBC 4.32 L (4.7-6.1) M/uL Hgb 14.9 (14.0-18.0) g/dL Hct 41.0 L (42-52) % MCV 94.9 (80-100) fL MCH 34.5 H (25-34) pg MCHC 36.3 H (32-36) g/dL RDW Std Deviation 44.3 (36.4-46.3) fL RDW Coeff of [place] 12.8 (11.5-14.5) % Plt Count 177 (130-400) K/uL MPV 9.5 (7.4-10.4) fL Immature Gran % (Auto) 0.0 % Neut % (Auto) 52.6 % Lymph % (Auto) 37.3 % [place] % (Auto) 5.2 % Eos % (Auto) 4.4 % Baso % (Auto) 0.5 % Immature Gran # (Auto) 0.00 (0.00-0.02) K/uL Neut # (Auto) 2.01 (1.4-6.5) K/uL Lymph # (Auto) 1.43 (1.2-3.4) K/uL [place] # (Auto) 0.20 (0.11-0.59) K/uL Eos # (Auto) 0.17 (0-0.5) K/uL Baso # (Auto) 0.02 (0-0.2) K/uL Sodium 138 (136-145) mmol/L Potassium 3.3 L (3.5-5.1) mmol/L Chloride 105 (98-107) mmol/L Carbon Dioxide 25 (21-32) mmol/L Anion Gap 8.0 (3-11) BUN 8 (7-18) mg/dl Creatinine 1.31 (0.6-1.4) mg/dl Est Cr Clr Drug Dosing 112.0 ml/min Est GFR ( Amer) 87.7 Est GFR (Non-Af Amer) 75.7 BUN/Creatinine Ratio 6.3 L (10-20) Glucose 93 (70-99) mg/dl Calcium 9.1 (8.5-10.1) mg/dl Magnesium 2.1 (1.8-2.4) mg/dl Total Bilirubin 1.5 H D (0.2-1) mg/dl Direct Bilirubin 0.4 H (0-0.2) mg/dl AST 115 H (15-37) U/L ALT 122 H (12-78) U/L Alkaline Phosphatase 135 H (45-117) U/L Total Protein 6.9 (6.4-8.2) gm/dl Albumin 3.7 (3.4-5.0) gm/dl Globulin (2.5-4.0) gm/dl Albumin/Globulin Ratio (0.9-2) TSH (0.300-4.500) uIu/ml Free T4 (0.8-1.6) ng/dl Urine Color Yellow Urine Appearance Clear (Clear) Urine pH 7.0 (4.5-7.5) Ur Specific [place] 1.021 (1.000-1.030) Urine Protein Negative (Negative) Urine Glucose (UA) Negative (Negative) Urine Ketones Negative (Negative) Urine Blood Negative (Negative) Urine Nitrite Negative (Negative) Urine Bilirubin Negative (Negative) Urine Urobilinogen Negative (Negative) Ur Leukocyte Esterase Negative (Negative) Salicylates (2.8-20) mg/dl Urine Opiates Screen (Neg) Ur Methadone, Qual (Neg) Acetaminophen (10-30) ug/ml Urine Barbiturates (Neg) Ur Phencyclidine (PCP) (Neg) U Amphetamin/Meth Scrn (Neg) MDMA (Ecstasy) Screen (Neg) U Benzodiazepines Scrn (Neg) Ur Cocaine Metabolite (Neg) U Marijuana (THC) Screen (Neg) Ethyl Alcohol mg/dL (0-3) mg/dl Hep Bs Antigen (Neg) Hep Bs Antibody Hep Bs Antibody, Quant (>or=10mIU/mL Immune) mIU/mL 09/30/18 09/30/18 Range/Units 07:36 10:13 WBC (4.8-10.8) K/uL RBC (4.7-6.1) M/uL Hgb (14.0-18.0) g/dL Hct (42-52) % MCV (80-100) fL MCH (25-34) pg MCHC (32-36) g/dL RDW Std Deviation (36.4-46.3) fL RDW Coeff of Rosas (11.5-14.5) % Plt Count (130-400) K/uL MPV (7.4-10.4) fL Immature Gran % (Auto) % Neut % (Auto) % Lymph % (Auto) % [place] % (Auto) % Eos % (Auto) % Baso % (Auto) % Immature Gran # (Auto) (0.00-0.02) K/uL Neut # (Auto) (1.4-6.5) K/uL Lymph # (Auto) (1.2-3.4) K/uL [place] # (Auto) (0.11-0.59) K/uL Eos # (Auto) (0-0.5) K/uL Baso # (Auto) (0-0.2) K/uL Sodium 137 (136-145) mmol/L Potassium 3.5 (3.5-5.1) mmol/L Chloride 105 (98-107) mmol/L Carbon Dioxide 28 (21-32) mmol/L Anion Gap 4.0 (3-11) BUN 12 (7-18) mg/dl Creatinine 1.38 (0.6-1.4) mg/dl Est Cr Clr Drug Dosing 105.7 ml/min Est GFR ( Amer) 82.3 Est GFR (Non-Af Amer) 71.1 BUN/Creatinine Ratio 8.4 L (10-20) Glucose 89 (70-99) mg/dl Calcium 9.0 (8.5-10.1) mg/dl Magnesium (1.8-2.4) mg/dl Total Bilirubin 0.9 D (0.2-1) mg/dl Direct Bilirubin (0-0.2) mg/dl AST 159 H (15-37) U/L ALT 141 H (12-78) U/L Alkaline Phosphatase 142 H (45-117) U/L Total Protein 6.9 (6.4-8.2) gm/dl Albumin 3.5 (3.4-5.0) gm/dl Globulin 3.4 (2.5-4.0) gm/dl Albumin/Globulin Ratio 1.0 (0.9-2) TSH (0.300-4.500) uIu/ml Free T4 (0.8-1.6) ng/dl Urine Color Urine Appearance (Clear) Urine pH (4.5-7.5) Ur Specific [place] (1.000-1.030) Urine Protein (Negative) Urine Glucose (UA) (Negative) Urine Ketones (Negative) Urine Blood (Negative) Urine Nitrite (Negative) Urine Bilirubin (Negative) Urine Urobilinogen (Negative) Ur Leukocyte Esterase (Negative) Salicylates (2.8-20) mg/dl Urine Opiates Screen (Neg) Ur Methadone, Qual (Neg) Acetaminophen (10-30) ug/ml Urine Barbiturates (Neg) Ur Phencyclidine (PCP) (Neg) U Amphetamin/Meth Scrn (Neg) MDMA (Ecstasy) Screen (Neg) U Benzodiazepines Scrn (Neg) Ur Cocaine Metabolite (Neg) U Marijuana (THC) Screen (Neg) Ethyl Alcohol mg/dL (0-3) mg/dl Hep Bs Antigen Neg (Neg) Hep Bs Antibody Non-Immune Hep Bs Antibody, Quant < 3.10 L (>or=10mIU/mL Immune) mIU/mL ECG Data Attestation: I personally reviewed and interpreted this ECG as follows: Indication: toxicologic Rate (beats per minute): 80 Rhythm: normal sinus Findings: + other (QTC is 440); no acute ischemic change and no ectopy Blood Pressure Blood Pressure Findings: Elevated blood pressure Blood Pressure Disposition: further management by hospitalist ELEAZAR Narrative This pt was evaluated and appeared to be anxious, tremulous and borderline tachycardic with HTN. IV access was obtained and lab work was drawn. Pt was hydrated with NSS, a banana bag was ordered. IV ativan was administered. Lab work reveals elevated LFT, ETOH of 11, elevated TSH at 20, but FT4 WNL. Pt was given ativan 2 mg IVP x 2 doses in the ED over several hours. Case was d/w the [facility] hospitalist service for further management. Dr Dwyer felt the pt would best be served at a rehab facility, but pt declined as [facility] offered a 10 day detox stay, per pt's account. Pt has been ordered po clonidine by hospit ali service with temporary improvement in BP, however pt did require additional IV ativan 2 mg ordered by me. He is concerned about loosing his job and would like to do an outpt program after hospitalization. Pt was reevaluated and after a conversation with Dr Dwyer, pt was kept at [facility] for acute ETOH withdrawal with tremors and marked hypertension, most noteable diastolic. Pt was happy with the final plan, although understandably frustrated with the process. Impression & Plan Alcohol withdrawal, Hypertension Discharge Plan Visit Data *Final* Discharge Date/Time: 09/28/18 13:28 Chief Complaint: Alcohol Withdrawal Stated Complaint: ANXIETY,NAUSEA ED Provider: Vania Glaser Discharge Problem: Alcohol withdrawal, Hypertension Patient Disposition: Admitted As Inpatient Condition: Fair Discharge Instructions Interventions: ED Discharge Assessment Last Done: 09/28/18 12:55 Discharge Problem: Alcohol withdrawal Qualifiers: Complication of substance-induced condition: with unspecified complication Qualified Code(s): F10.239 - Alcohol dependence with withdrawal, unspecified Hypertension Qualifiers: Hypertension type: unspecified Qualified Code(s): I10 - Essential (primary) hypertension The scribe's documentation has been prepared under my direction and personally reviewed by me in its entirety. I confirm that the note above accurately reflects all work, treatment, procedures, and medical decision making performed by me.
[2018-09-28] MEDS ORDERED: PANTOprazole 40 MG TAB PO PRN (14:30)
[2018-09-28] MEDS: chlordiazePOXIDE HCl 25 MG CAP PO SCH ×2 (14:34→21:04)
[2018-09-28] MEDS: D5NSS + 20MEQ KCL 20 MEQ/1,000 ML BAG IV SCH ×2 (14:45→23:39)
[2018-09-28] MEDS: FOLIC ACID 1 MG TAB PO SCH (15:50)
[2018-09-28] MEDS: THIAMINE HCL 100 MG TAB PO SCH (15:50)
[2018-09-28] MEDS: TIOTROPIUM BROMIDE 5 PUFF/90 MCG INH INH SCH (21:04)
[2018-09-28] MEDS: cloNIDine HCl 0.1 MG TAB PO PRN (23:39)
[2018-09-29] MEDS: LEVOTHYROXINE SODIUM 125 MCG TABLET PO SCH (05:47)
[2018-09-29 07:45] LABS: Basophils # (auto) 0.02 K/uL (0-0.2); Basophils % (auto) 0.5 %; Eosinophils # (auto) 0.17 K/uL (0-0.5); Eosinophils % (auto) 4.4 %; Hemoglobin 14.9 g/dL (14.0-18.0); Lymphocytes # (auto) 1.43 K/uL (1.2-3.4); Lymphocytes % (auto) 37.3 %; Mean Corpuscular Hgb Conc 36.3 g/dL (32-36); Mean Corpuscular Volume 94.9 fL (80-100); Mean Platelet Volume 9.5 fL (7.4-10.4); Monocytes % (auto) 5.2 %; Neutrophils # (auto) 2.01 K/uL (1.4-6.5); Neutrophils % (auto) 52.6 %; Platelet Count 177 K/uL (130-400); RDW Coefficient of Variation 12.8 % (11.5-14.5); RDW Standard Deviation 44.3 fL (36.4-46.3); Red Blood Count 4.32 M/uL (4.7-6.1); White Blood Count 3.83 K/uL (4.8-10.8)
[2018-09-29] MEDS: FOLIC ACID 1 MG TAB PO SCH (07:51)
[2018-09-29] MEDS: LURASIDONE HCL 40 MG TAB PO SCH ×2 (07:51→10:31)
[2018-09-29] MEDS: THIAMINE HCL 100 MG TAB PO SCH (07:53)
[2018-09-29] MEDS: LORazepam 2 MG/4 ML VIAL IV PRN ×4 (07:54→22:06)
[2018-09-29] MEDS: D5NSS + 20MEQ KCL 20 MEQ/1,000 ML BAG IV SCH (07:54)
[2018-09-29] MEDS: chlordiazePOXIDE HCl 25 MG CAP PO SCH ×3 (08:01→20:55)
[2018-09-29 08:22] LABS: Albumin Level 3.7 gm/dl (3.4-5.0); BUN Creatinine Ratio 6.3 (10-20); Bilirubin Direct 0.4 mg/dl (0-0.2); Calcium 9.1 mg/dl (8.5-10.1); Est GFR (African American) 87.7; Est GFR (Non-African American) 75.7; Magnesium 2.1 mg/dl (1.8-2.4); Potassium 3.3 mmol/L (3.5-5.1)
[2018-09-29 08:28] LABS: Bilirubin,Total 1.5 mg/dl (0.2-1); Total Protein 6.9 gm/dl (6.4-8.2)
[2018-09-29] MEDS ORDERED: TRAZODONE HCL 50 MG TAB PO PRN (11:18)
--- NOTE | 2018-09-29 11:54 | Hospitalist Progress Note ---
Date of Service September 29, 2018 Assessment & Plan (1) Alcohol withdrawal: - Pt. has been drinking ~10 shots per night due to reported insomnia. - Librium 25 mg TID - taper as tolerated; Ativan prn per protocol. - Continue folic acid 1 mg qAM and thiamine 100 mg qAM. - Psych consulted -- follows with Traci Herring PA-C at [facility]. - Pt. does not want inpatient rehab due to financial issues/work schedule; was provided list of facilities for future outpatient programs. - ETOH cessation was encouraged. (2) Hypertension: - Continue Clonidine q8hr prn. (3) Elevated transaminase level: - LFTs are elevated -- T. bili also now trending up. - LFTs were elevated in past (Jan 2018 and July 2018) with exception of T. bili. - May be secondary to ETOH use. - Trend qAM. (4) Anxiety: - Currently takes Latuda 60 mg qhs -- pt. tapered dose to 30 mg qhs due to cost of medication. - He was instructed to continue 60 mg dose due to increased anxiety. - Continue Buspar 10 mg BID as prescribed. (5) Hypothyroidism: - Continue Synthroid 125 mcg daily. - TSH was 20.4 -- will need repeat level in 3 months. (6) Asthma: - Continue Spiriva as prescribed. - Pt. was also taking Singulair at home. (7) DVT prophylaxis: - Encourage ambulation. Dispo: Discharge on 09/30/18 pending resolution of acute ETOH withdrawal. Supervising Physician Co-Signing Physician Notes Attending Attestation - Chart reviewed, care plan d/w MICHAEL Argueta. I agree w/ the patel components of her documentation. 23yo with alcoholism and probable alcohol withdrawal. Continue alcohol withdrawal symptom management. Patient counseled about importance of compliance with thyroid medication. Felix Constantino MD Subjective Pt. is doing well overall. BP has been high. Did require IV Ativan this morning. Discussed ETOH abuse with patient -- he relates heavy drinking to insomnia. He follows with YUN from psychiatry -- encouraged him to discuss anxiety and drinking issues with her. He is feeling anxious this morning -- he tapered his latuda to 30 mg daily at home due to cost of medication. Has been using Trazodone 25 mg qhs for insomnia with some relief. Will monitor for 24 hours and evaluate for discharge likely tomorrow. Review of Systems Review of Systems: All systems reviewed & are unremarkable except as noted in HPI & below Constitutional: no fever, no chills, no fatigue, no weakness and no anorexia Respiratory: no cough, no dyspnea, no dyspnea on exertion and no wheezing Cardiovascular: no chest pain, no palpitations and no edema Gastrointestinal: no abdominal pain, no nausea and no constipation Genitourinary: no difficulty urinating Musculoskeletal: no back pain and no joint pain Integumentary: no non-healing lesions Psychiatric: + anxiety and + substance abuse Allergy / Immunological: no rash Physical Exam Physical Exam: General: Very pleasant young male, in no acute distress. HEENT: NC/AT; PERRLA with EOMI; [place] conjunctiva, MMM. No erythema of posterior pharynx Neck: Supple and nontender Cardiac: RRR Lungs: CTA bilaterally Abdomen: Bowel normoactive X 4; Nontender to palpation Extremities: Warm. No edema present Neuro: No focal weakness Skin: No rash Results & Data Vital Signs (Past 12 Hours) Vital Signs Temp Pulse Pulse Resp BP Pulse Ox 09/29/18 08:03 36.5 C 95 H 18 149/102 H 100 09/29/18 08:00 66 09/29/18 04:02 36.5 C 76 20 149/89 H 96 09/29/18 01:00 36.5 C 98 H 18 145/81 H 98 Laboratory Results 09/29/18 09/29/18 Range/Units 07:28 07:28 WBC 3.83 L (4.8-10.8) K/uL RBC 4.32 L (4.7-6.1) M/uL Hgb 14.9 (14.0-18.0) g/dL Hct 41.0 L (42-52) % MCV 94.9 (80-100) fL MCH 34.5 H (25-34) pg MCHC 36.3 H (32-36) g/dL RDW Std Deviation 44.3 (36.4-46.3) fL RDW Coeff of [place] 12.8 (11.5-14.5) % Plt Count 177 (130-400) K/uL MPV 9.5 (7.4-10.4) fL Immature Gran % (Auto) 0.0 % Neut % (Auto) 52.6 % Lymph % (Auto) 37.3 % [place] % (Auto) 5.2 % Eos % (Auto) 4.4 % Baso % (Auto) 0.5 % Immature Gran # (Auto) 0.00 (0.00-0.02) K/uL Neut # (Auto) 2.01 (1.4-6.5) K/uL Lymph # (Auto) 1.43 (1.2-3.4) K/uL [place] # (Auto) 0.20 (0.11-0.59) K/uL Eos # (Auto) 0.17 (0-0.5) K/uL Baso # (Auto) 0.02 (0-0.2) K/uL Sodium 138 (136-145) mmol/L Potassium 3.3 L (3.5-5.1) mmol/L Chloride 105 (98-107) mmol/L Carbon Dioxide 25 (21-32) mmol/L Anion Gap 8.0 (3-11) BUN 8 (7-18) mg/dl Creatinine 1.31 (0.6-1.4) mg/dl Est Cr Clr Drug Dosing 112.0 ml/min Est GFR ( Amer) 87.7 Est GFR (Non-Af Amer) 75.7 BUN/Creatinine Ratio 6.3 L (10-20) Glucose 93 (70-99) mg/dl Calcium 9.1 (8.5-10.1) mg/dl Magnesium 2.1 (1.8-2.4) mg/dl Total Bilirubin 1.5 H D (0.2-1) mg/dl Direct Bilirubin 0.4 H (0-0.2) mg/dl AST 115 H (15-37) U/L ALT 122 H (12-78) U/L Alkaline Phosphatase 135 H (45-117) U/L Total Protein 6.9 (6.4-8.2) gm/dl Albumin 3.7 (3.4-5.0) gm/dl (1) Alcohol withdrawal Complication of substance-induced condition: with unspecified complication Qualified Code(s): F10.239 - Alcohol dependence with withdrawal, unspecified (2) Hypertension Hypertension type: unspecified Qualified Code(s): I10 - Essential (primary) hypertension
[2018-09-29] MEDS: cloNIDine HCl 0.1 MG TAB PO PRN (15:23)
[2018-09-29] MEDS: TIOTROPIUM BROMIDE 5 PUFF/90 MCG INH INH SCH (20:56)
[2018-09-29] MEDS ORDERED: LURASIDONE HCL 40 MG TAB PO SCH (21:00)
[2018-09-30] MEDS: LEVOTHYROXINE SODIUM 125 MCG TABLET PO SCH (07:31)
[2018-09-30] MEDS: THIAMINE HCL 100 MG TAB PO SCH (07:52)
[2018-09-30] MEDS: FOLIC ACID 1 MG TAB PO SCH (07:52)
[2018-09-30] MEDS: chlordiazePOXIDE HCl 25 MG CAP PO SCH ×2 (07:54→14:38)
[2018-09-30 09:07] LABS: Albumin Level 3.5 gm/dl (3.4-5.0); BUN Creatinine Ratio 8.4 (10-20); Creatinine Clr Calc Pharmacy 105.7 ml/min; Est GFR (African American) 82.3; Est GFR (Non-African American) 71.1; Potassium 3.5 mmol/L (3.5-5.1)
[2018-09-30 09:10] LABS: Bilirubin,Total 0.9 mg/dl (0.2-1); Globulin 3.4 gm/dl (2.5-4.0); Total Protein 6.9 gm/dl (6.4-8.2)
[2018-09-30] MEDS ORDERED: POTASSIUM CHLORIDE 20 MEQ TABCR PO STA (09:16)
[2018-09-30 11:54] LABS: Hepatitis B Surface Antibody Non-Immune
[2018-09-30 12:05] LABS: Hepatitis B Surface Antigen Neg (Neg)
--- NOTE | 2018-09-30 14:44 | Ultrasound Report ---
BILIARY ULTRASOUND CLINICAL HISTORY: Cirrhosis COMPARISON STUDY: No previous studies for comparison. FINDINGS: The pancreas appears normal as visualized. The liver is enlarged, measuring 20 cm. The liver is of increased echogenicity. Nonspecific the findi ngs are likely secondary to hepatic steatosis. No focal hepatic masses are visualized. There is no ductal dilatation. The gallbladder appears sonographically normal. There is no right-sided hydronephrosis. IMPRESSION: 1. Increased hepatic echogenicity, a nonspecific finding most likely secondary to hepatic steatosis. Otherwise normal biliary ultrasound. Electronically signed by: Steffen Holly M.D. 09/30/2018 2:43 PM
[2018-09-30] MEDS ORDERED: METOPROLOL SUCC 25MG EXT REL TAB PO SCH (15:30)
--- NOTE | 2018-09-30 15:40 | Discharge Summary ---
Date of Service September 30, 2018 Admission HPI Per Admitting Provider This is a 23-year-old male with PMHx of depression, anxiety, alcohol abuse. The patient notes that alcohol use started when he entered college at [employer]. He is now drinking 10 shots every evening to help him fall asleep. He does wake up in the morning feeling like he needs a drink and hs 2 shots or 2 beers. Patient reports having decided to stop drinking on Thursday night. Last evening however, patient had 2 beers and took ZzzQuil to help fall asleep as his anxiety, tremors, chills were so bad. The patient reported to the ER today due to increased anxiety and tremors. He has received a banana bag, and Ativan 4 mg. Patient's blood pressure is noted to be elevated as high as 181/92. He has also recently graduated from [employer] and has just started a new job, and has attempted to stop drinking for this reason as well. Patient lives at home with his ricardo and her 2yo daughter. Patient denies any mood swings, anger outbursts or specific irritability regarding stopping alcohol use. He reports anxiety is much more of a problem. SHx: Patient follows with Traci Herring PA-C, at [place] for psychiatric needs. He has also seen a counselor at [facility] in the past for alcohol use, but has not followed him for a few years. Patient denies any recent medication changes other than increased dose of BuSpar for his anxiety. The patient reports he is not interested in going to an inpatient rehab facility directly from our ER as he does not have the money, nor at the time to take off from his new job for this. Patient is requesting admission here and will proceed with outpatient rehab on his own. Patient has been given a list of inpatient and outpatient facilities addresses and numbers. Admission Exam Per Admitting Provider General: awake, alert, + anxious, + overweight with BMI of 35 Head: Normocephalic, atraumatic ENT: PERRL, EOMI, no pharyngeal exudate, mucous membranes moist Chest: Clear to auscultation, on room air, no adventitious breath sounds Cardiac:Tachycardic, HR in 90s to 100s, no murmur, no JVD, normal peripheral pulses, good capillary refill Abdominal: NABS x 4 quadrants, soft, nontender to palpation, no rebound, guarding or tenderness Extremities: Normal inspection, no peripheral edema or erythema, calfs nontender to palpation Psych: Normal mood and affect Neuro: AAO x 3, strength intact bilaterally and related 5/5, no motor deficits, speech is clear, no peripheral sensory deficits Principal Diagnosis Acute ETOH Withdrawal Discharge Exam General: Pleasant young male, in no acute distress. HEENT: NC/AT; PERRLA with EOMI; [place] conjunctiva, MMM. No erythema of posterior pharynx Neck: Supple and nontender Cardiac: RRR Lungs: CTA bilaterally Abdomen: Bowel normoactive X 4; Nontender to palpation Extremities: Warm. No edema or tremors noted on exam. Neuro: No focal weakness Skin: No rash Discharge Data Allergies Allergy/AdvReac Type Severity Reaction Status Date / Time cetirizine Allergy Intermediate hives Verified 09/28/18 07:23 fexofenadine Allergy Intermediate hives Verified 09/28/18 07:23 loratadine Allergy Intermediate hives Verified 09/28/18 07:23 Consultations 09/28/18 10:42 ED Decision to Admit Stat Ordered Studies 09/30/18 09:34 US abdomen limited Urgent Hospital Course (1) Alcohol withdrawal: Pt. has been drinking ~10 shots per night due to reported insomnia. Librium 25 mg TID was started at admission along with Ativan prn for withdrawal protocol. Received banana bag followed by folic acid 1 mg and thiamine 100 mg daily. Pt. did not want to discuss inpt ETOH rehab -- was provided list of outpatient facilities. Will f/u with Traci Herring PA-C at discharge. Librium taper was sent to the pharmacy (TID x 1 day, BID x 3 days, daily x 3 days). ETOH cessation was strongly encouraged. (2) Hypertension: Clonidine q8hr prn. Pt. was hypertensive during this admission - he takes guanfacine at home. Med is non-formulary, was not provided during this admission. Metoprolol 25 mg qAM was started -- instructed to take this medication at home and d/c Guanfacine. Will need to discuss anti-hypertensive medication with PCP. (3) Elevated LFTs: LFTs were elevated -- unclear etiology, ETOH induced vs. fatty liver. RUQ US showed hepatic steatosis. Hep B and C tests were negative. (4) Anxiety: Currently takes Latuda 60 mg qhs and Buspar 10 mg BID. (5) Hypothyroidism: Continued Synthroid 125 mcg daily. TSH was 20.4 -- pt. admitted to taking synthroid dose intermittently. Discussed the importance of taking medication daily. Will need f/u testing in 6-8 weeks to evaluate for improvement in TSH. (6) Asthma: Continued Spiriva as prescribed. (7) DVT prophylaxis: Encouraged ambulation. Discharged to home on 09/30/18. BP was elevated at day of admission -- will need to follow closely with PCP to discuss. Total Time Total Time Spent Total Time Spent (In Minutes): >30 minutes Total Time Includes: Examination of the Patient, Discharge Planning, Medication Reconciliation, Communication With Other Providers and Other Discharge Plan Discharge Items Patient Disposition: Home - Self-Care Reason For Visit: ALCOHOL WITHDRAWAL Discharge Diagnosis: Acute ETOH Withdrawal Condition: Fair Discharge Goals: Improve disease control, Improve function, Increase independence, Improve nutritional status and Prevent disease Activity: Resume your previous activity Non-emergency contact: Primary Care Provider and Psychiatrist Call non-emergency contact if: you have any medication questions, your symptoms worsen and you have a fever Follow-up/Referrals: Traci Herring PA-C [Physician] - 10/08/18 1:00 pm (Please, follow up at [facility] with Traci Herring PA-C on ThursdayOctober 08 at 9:00 am. *If you need to change this appointment, call the office at [phone].) Froylan Alonzo MD [Primary Care Provider] - 10/04/18 12:55 pm (Please, follow up at [facility] with Dr. Froylan Alonzo on ThursdayOctober 04 at 12:55 pm. *If you need to change this appointment, call the office at [phone].) Diet: Regular Addtl Provider Instructions: 1. Acute ETOH Withdrawal * Please continue Librium taper as follows: - 25 mg three times daily on 10/01/18. - 25 mg twice daily x 3 days (10/02-10/04) - 25 mg daily x 3 days (10/05-10/07) --Please do not take this medication prior to work to Thursday. It is advised to take this medication after completing your shift at work. * Please continue folic acid 1 mg daily and Thiamine 100 mg daily. * It is recommended to discontinue use of ETOH at home. A list has been provided during this admission of outpatient rehabilitation facilities. * Please follow up with Traci Herring to discuss insomnia/anxiety/ETOH abuse issues. 2. Hypertension * Please discontinue current anti-hypertensive. * Metoprolol 25 mg daily has been started -- please take this medication in the morning. * You will need to discuss increasing this medication with your primary care provider. 3. Hypothyroidism * TSH level was 20.4 during this admission -- this indicates that you have not been taking Synthroid at home or your dose needs to be adjusted. * Please take Synthroid 125 mcg daily -- this medication should be taken every morning 30-60 minutes prior to breakfast. 4. Please continue home medications as prescribed. Prescriptions for Levothyroxine, Metoprolol and Librium were sent to [facility] on [address]. Folic acid and Thiamine can be purchased over the counter. 5. Please follow up with Traci Herring from psychiatry and your primary care provider as scheduled. Prescriptions: New thiamine HCl (vitamin B1) [Vitamin B-1] 100 mg Tablet 100 mg PO QAM 30 Days Qty: 30 RF: 0 folic acid 1 mg Tablet 1 mg PO QAM 30 Days Qty: 30 RF: 0 chlordiazepoxide HCl 25 mg Capsule 25 mg PO TID Qty: 13 RF: 0 metoprolol succinate 25 mg capsule,sprinkle,ER 24hr 25 mg PO DAILY Qty: 30 RF: 0 Continued clonazepam 1 mg tablet 1 mg PO DAILY PRN (Reason: Anxiety) RF: 0 buspirone 10 mg tablet 10 mg PO BID RF: 0 albuterol sulfate 90 mcg/actuation HFA aerosol inhaler 2 puff inhalation QID PRN (Reason: sob) RF: 0 Prilosec OTC 20 mg Tablet,Delayed Release (Dr/Ec) 20 mg PO DAILY PRN (Reason: Heartburn) RF: 0 Spiriva with HandiHaler 18 mcg Capsule, W/Inhalation Device 1 cap INHALATION HS RF: 0 Latuda 60 mg Tablet 60 mg PO DAILY RF: 0 levothyroxine 125 mcg Tablet 125 mcg PO DAILY 30 Days Qty: 30 RF: 0 Discontinued guanfacine 2 mg tablet extended release 24 hr PO DAILY RF: 0 Stand-Alone Forms: [employer], Work/School Release (Inpt) [facility]/Other Patient Handouts: Addiction Tx Options, Addiction Recovery Counseling Discharge Orders: Discharge Order (Routine); Ordered 09/30/18 Ordered By: Bryanna Argueta Admission Data Admit Date/Time: 09/28/18 11:49 Attending Provider: Felix Constantino Admit Provider: Nilo Dwyer Primary Care Provider: Froylan Alonzo Other Providers: Milana Bowen ; Bryanna Argueta Service: Telemetry Other Interventions: Discharge Summary Assessment (RN) Last Done: 09/30/18 19:01 Pending Studies at Discharge: No DC Date/Time DO NOT enter until pt leaves facility: 09/30/18 19:30 Supervising Physician Co-Signing Physician Notes Attending attestation & discharge note: Pt seen/examined, chart reviewed, discharge care plan d/w PA Bryanna Argueta. I agree w/ the patel components of her discharge summary. 23yo male with HTN, hypothyroidism, anxiety d/o, alcoholism - presented with alcohol withdrawal, insomnia, anxiety. Treated for alcohol withdrawal with librium. TSH noted to be 20 -- patient was open with us that he is noncompliant with synthroid. Patient also with abnormal LFTs -- this is chronic, and likely due to fatty liver as imaging shows hepatosteatosis. BPs were elevated while hospitalized requiring institution of toprol xl. On day of discharge the patient was awake, alert, oriented x 3 and anxious. No tremors noted. He was advised to abstain from all alcohol and encouraged to follow-up with all providers post-discharge. Counseled on importance of synthroid compliance especially in light of mood disorder. Discharge exam: gen - NAD mouth - MMM heart - RRR, s1, s2, no murmur lungs - CTA b/l abd - soft, no HSM, NT, ND, BS+ ext - no edema neuro - no tremors, no signs of alcohol withdrawal Felix Constantino MD
--- NOTE | 2018-09-30 17:06 | Hospitalist Progress Note ---
Date of Service September 30, 2018 Assessment & Plan (1) Alcohol withdrawal: - Pt. has been drinking ~10 shots per night due to reported insomnia. - Librium -- will increase to 50 mg TID due to uncontrolled BP, ongoing ETOH withdrawal; Ativan prn. - Continue folic acid 1 mg qAM and thiamine 100 mg qAM. - Follows with Traci Herring PA-C at [facility]. - Pt. does not want inpatient rehab due to financial issues/work schedule; was provided list of facilities for future outpatient programs. - ETOH cessation was encouraged. (2) Hypertension: - BP has been very high this afternoon and throughout admission -- likely related to acute ETOH withdrawal. - On Guanfacine at home but states he does not take med regularly. - Clonidine q8hr prn while inpatient. - Start Metoprolol XL 25 mg daily -- received dose this afternoon with no improvement in HTN. - Will d/c Guanfacine at discharge -- med is likely not working well at home. Will need close follow up with PCP to discuss medication management. (3) Elevated LFTs: - LFTs were elevated in past (Jan 2018 and July 2018) - LFTs now improving overall. - Hepatitis B and C testing negative. - RUQ US showed hepatic steatosis, was otherwise negative. - May be secondary to ETOH use; encourage ETOH cessation. (4) Anxiety: - Currently takes Latuda 60 mg qhs -- pt. tapered dose to 30 mg qhs due to cost of medication. - He was instructed to continue 60 mg dose due to increased anxiety. - Continue Buspar 10 mg BID as prescribed. (5) Hypothyroidism: - Continue Synthroid 125 mcg daily. - TSH was 20.4 -- will need repeat level in 3 months. (6) Asthma: - Continue Spiriva as prescribed. - Pt. was also taking Singulair at home. (7) DVT prophylaxis: - Encouraged ambulation. Dispo: Discharge tomorrow pending improvement in HTN. Supervising Physician Co-Signing Physician Notes Attending Attestation - Chart reviewed, care plan d/w MICHAEL Argueta. I agree w/ the patel components of her documentation. See my attestation on today's discharge summary. Felix Constantino MD Subjective Pt. is doing well overall today. Denies headaches, N/V, tremors, diarrhea or co nstipation, poor PO intake. BP remains high -- he takes Guanfacine at home. Pt. does not take meds daily at home -- often forgets doses. TSH is very high -- likely related to medication non-compliance. Discussed the importance of taking meds daily as prescribed. Will monitor over next 24 hours due to high blood pressure. Review of Systems Review of Systems: All systems reviewed & are unremarkable except as noted in HPI & below Constitutional: no fever, no chills, no fatigue, no weakness and no anorexia Respiratory: no cough, no dyspnea, no dyspnea on exertion and no wheezing Cardiovascular: no chest pain, no palpitations, no lightheadedness, no syncope and no edema Gastrointestinal: no abdominal pain, no nausea, no vomiting, no constipation and no diarrhea/loose stools Genitourinary: no dysuria and no difficulty urinating Musculoskeletal: no back pain and no joint pain Integumentary: no non-healing lesions Neurologic: no tremor(s) Psychiatric: + abnormal sleep pattern; no depression and no anxiety Physical Exam Physical Exam: General: Pleasant young male, in no acute distress. HEENT: NC/AT; PERRLA with EOMI; [place] conjunctiva, MMM. No erythema of posterior pharynx Neck: Supple and nontender Cardiac: RRR Lungs: CTA bilaterally Abdomen: Bowel normoactive X 4; Nontender to palpation Extremities: Warm. No edema present Neuro: No focal weakness Skin: No rash Results & Data Vital Signs (Past 12 Hours) Vital Signs Temp Pulse Pulse Resp BP BP Pulse Ox 09/30/18 15:26 36.4 C L 99 H 18 155/117 H 138/91 98 09/30/18 15:05 36.4 C L 99 H 18 155/117 H 98 09/30/18 11:53 36.5 C 62 18 138/91 95 09/30/18 09:23 148/99 H 09/30/18 07:36 72 09/30/18 07:00 36.4 C L 96 H 20 144/101 H 97 Laboratory Results 09/30/18 09/30/18 09/30/18 Range/Units 10:13 10:13 07:36 Sodium 137 (136-145) mmol/L Potassium 3.5 (3.5-5.1) mmol/L Chloride 105 (98-107) mmol/L Carbon Dioxide 28 (21-32) mmol/L Anion Gap 4.0 (3-11) BUN 12 (7-18) mg/dl Creatinine 1.38 (0.6-1.4) mg/dl Est Cr Clr Drug Dosing 105.7 ml/min Est GFR ( Amer) 82.3 Est GFR (Non-Af Amer) 71.1 BUN/Creatinine Ratio 8.4 L (10-20) Glucose 89 (70-99) mg/dl Calcium 9.0 (8.5-10.1) mg/dl Total Bilirubin 0.9 D (0.2-1) mg/dl AST 159 H (15-37) U/L ALT 141 H (12-78) U/L Alkaline Phosphatase 142 H (45-117) U/L Total Protein 6.9 (6.4-8.2) gm/dl Albumin 3.5 (3.4-5.0) gm/dl Globulin 3.4 (2.5-4.0) gm/dl Albumin/Globulin Ratio 1.0 (0.9-2) Hep Bs Antigen Neg (Neg) Hep Bs Antibody Non-Immune Hep Bs Antibody, Quant < 3.10 L (>or=10mIU/mL Immune) mIU/mL Hep B Core IgM Ab Pending (1) Alcohol withdrawal Complication of substance-induced condition: with unspecified complication Qualified Code(s): F10.239 - Alcohol dependence with withdrawal, unspecified (2) Hypertension Hypertension type: unspecified Qualified Code(s): I10 - Essential (primary) hypertension
[2018-09-30] MEDS ORDERED: chlordiazePOXIDE HCl 25 MG CAP PO ONE (17:17)
[2018-09-30] MEDS: cloNIDine HCl 0.1 MG TAB PO PRN (18:29)
[2018-09-30] MEDS ORDERED: chlordiazePOXIDE HCl 25 MG CAP PO SCH (21:00)
== END 2018-09-30 19:30 | disposition home or self-care (01) | DRG 897 ==
LOC: ED 06:29 → SUATTDRO 11:49 → 2W 11:49
DX: E03.9 Hypothyroidism, unspecified; F10.239 Alcohol dependence with withdrawal, unspecified; Z88.8 Allergy status to other drugs, medicaments and biological substances; F41.9 Anxiety disorder, unspecified; I10 Essential (primary) hypertension; R74.0 Nonspecific elevation of levels of transaminase and lactic acid dehydrogenase [LDH]; J45.909 Unspecified asthma, uncomplicated; Z79.899 Other long term (current) drug therapy

== ENCOUNTER 2025-04-18 07:47 | Inpatient (IN) ==
--- NOTE | 2025-04-18 08:26 | Emergency Department Note ---
Impression & Plan Alcohol withdrawal ED Provider Note HISTORY OF PRESENT ILLNESS: Patient is a 30-year-old male presenting with alcohol withdrawal. Patient reports he has been drinking over 1/5 of alcohol daily for the last few months. His last stent sobriety was in May 2024. He states that his last drink was 12 hours ago. He states he is feeling very shaky and anxious and has had nausea and multiple episodes of vomiting today. He denies any diarrhea. He reportedly has been binge drinking for the last 4 days. He is currently complaining of nausea and feeling very tremulous. He has had previous DTs and had hallucinations and a seizure in May when he attempted to get sober. Mother at bedside reports that the patient has had some significant social stressors and this time of year is very hard for him, as he lost his daughter and her fourth birthday is coming up later this week. ROS: as above PHYSICAL EXAM: Constitutional: Patient appears in no acute distress. HENT: Head: Normocephalic and atraumatic. Eyes: EOMI, PERRL Mouth/Throat: Mucous membranes moist. Neck: Trachea midline. Neck supple. Cardiovascular: Tachycardic with regular rhythm. No murmurs, rubs or gallops. Intact distal pulses. Pulmonary/Chest: No respiratory distress. Breath sounds clear and equal bilaterally. No wheezes or rales. Abdominal: Abdomen soft, no tenderness, rebound or guarding. Musculoskeletal: No edema, tenderness or deformity noted. Skin: Warm and dry. No rash, erythema, pallor or cyanosis Psychiatric: Appropriate mood and affect for situation. Tremulous on examination. Neurological: Alert and keenly responsive. CN II-XII grossly intact, moving all extremities equally and fully. MDM: - Vitals signs showed hypertension and tachycardia. - History obtained via patient. History as above. - Chronic conditions affecting care: alcohol abuse - Differential diagnoses include, but are not limited to: Alcohol withdrawal; alcohol intoxication; electrolyte abnormality; dysrhythmia; dehydration - Order placed for continuous cardiac monitoring. At this time, monitor showed rate of 103 bpm with normal sinus rhythm, per my interpretation. - External medical records reviewed. - EKG image interpreted by myself showed normal sinus rhythm. Rate 88 bpm. QT 372. No acute ischemic changes. - Laboratory workup interpreted by myself showed normal WBC; stable electrolytes; elevated AST (41); elevated alcohol (149.2) - AWSS a 6 on arrival. Given 1 mg IV ativan with some slight improvement in symptoms. Given 4 mg IV zofran in ER. - Discussed results with the patient. Unfortunately, he still has a detectable alcohol level and is already having significant withdrawal symptoms. He does have a history of hallucinations and withdrawal seizures. Did recommend admission for medical detox, to which the patient was agreeable. IV phenobarbital was ordered. - Discussion was had with medical case worker about patient's case and need for admission - Hospitalist consulted for admission - [facility] ASSESSMENT AND PLAN: Diagnosis: Alcohol withdrawal Plan: Admit Past Med/Surg History Problem List S/P arthroscopy of right shoulder Partial tear of right rotator cuff Impingement of right shoulder Biceps rupture, proximal Biceps tendinitis of right shoulder Superior labrum bbnhtiju-iq-ugmzopdez (SLAP) tear of right shoulder Medical History Gout Bipolar 2 disorder Post traumatic stress disorder Anxiety Hypertension Alcohol withdrawal Hypothyroidism ? pt denies Asthma uses rescue inhaler a couple times of month on average Surgical History History of wisdom tooth extraction History of nasal surgery closed reduction History of arthroscopy of shoulder right Family History Father Family history of reaction to anesthesia nauseated Social History Smoking Status: Current every day smoker Tobacco Type: E-cigarettes / Vaping Cigarettes Per Day: vaps daily (advised on policy); Second Hand Exposure: No; Do You Dip or Chew Tobacco: No; Hx Alcohol Use: Yes Alcohol type: beer and hard liquor Alcohol Intake Frequency Comment: 6-8 Hx Substance Use: No Preferred Language: Sami Communication Ability: Effective [place] Required: No Beliefs That Will Affect Care: None Current Living Situation: Parent Current Living Situation Comment: lives with parents Feels Safe at Home: Yes Assistive Devices: None Allergies Allergies Allergy/AdvReac Type Severity Reaction Status Date / Time shrimp Allergy Severe hands Verified 03/07/25 11:58 severely swelled when touching cetirizine Allergy Intermediate hives Verified 03/07/25 11:58 fexofenadine Allergy Intermediate hives Verified 03/07/25 11:58 loratadine Allergy Intermediate hives Verified 03/07/25 11:58 Home Meds Home Medications Medication Instructions Recorded Confirmed allopurinol 300 mg tablet 300 mg PO QAM 08/09/24 04/18/25 amlodipine 10 mg tablet 0 mg PO QAM 08/09/24 04/18/25 buspirone 10 mg tablet 10 mg PO BID 08/09/24 04/18/25 clonazepam 1 mg tablet 1 mg PO DAILY PRN Anxiety 08/09/24 04/18/25 lurasidone 80 mg tablet (Latuda) 80 mg PO HS 08/09/24 04/18/25 prazosin 2 mg capsule 4 mg PO HS 08/09/24 04/18/25 albuterol sulfate 90 mcg/actuation 2 puff inhalation Q6H PRN 02/24/25 04/18/25 aerosol inhaler Shortness Of Breath desloratadine 5 mg tablet 5 mg PO DAILY PRN Allergy Symptoms 02/24/25 04/18/25 Previous Rx's Medication Instructions Recorded ondansetron 4 mg disintegrating 4 mg PO Q6H PRN nausea and 03/07/25 tablet vomiting #10 tabs oxycodone 5 mg tablet 5 - 10 mg (1 - 2 x 5 mg) PO Q6H 03/17/25 PRN post operative pain #18 tabs Results & Data (ED) Vital Signs Vital Signs - 24 hr 04/18/25 07:52 04/18/25 08:12 04/18/25 08:16 Temperature 36.7 C Temperature Source Temporal Artery Scan Pulse Rate 104 H 94 H 94 H Pulse Rate from SpO2 Sensor 94 H Respiratory Rate 18 17 Blood Pressure 179/115 H 184/120 H Blood Pressure Mean 136 141 Pulse Oximetry 96 100 Oxygen Delivery Method Room Air Room Air Sepsis New/Unexplained Change in Mental Status No Sepsis Action Taken by Nursing No Action Required 04/18/25 08:30 04/18/25 09:12 04/18/25 09:30 Temperature Temperature Source Pulse Rate 93 H 89 110 H Pulse Rate from SpO2 Sensor 89 89 Respiratory Rate 14 21 15 Blood Pressure 132/86 164/129 H Blood Pressure Mean 101 140 Pulse Oximetry 97 93 95 Oxygen Delivery Method Room Air Room Air Room Air Sepsis New/Unexplained Change in Mental Status Sepsis Action Taken by Nursing 04/18/25 10:00 Temperature Temperature Source Pulse Rate 82 Pulse Rate from SpO2 Sensor 82 Respiratory Rate 14 Blood Pressure 136/96 Blood Pressure Mean 109 Pulse Oximetry 96 Oxygen Delivery Method Room Air Sepsis New/Unexplained Change in Mental Status Sepsis Action Taken by Nursing Laboratory Data 04/18/25 08:13 04/18/25 08:13 Lab Results 04/18/25 Range/Units 08:13 WBC 5.63 (4.8-10.8) K/ul RBC 5.19 (4.70-6.10) M/uL Hgb 16.5 (14.0-18.0) g/dL Hct 46.1 (42.0-52.0) % MCV 88.8 (80.0-100.0) fL MCH 31.8 (25.0-34.0) pg MCHC 35.8 (32.0-36.0) g/dL RDW Std Deviation 42.1 (36.4-46.3) fL RDW Coeff of Rosas 13.0 (11.5-14.5) % Plt Count 362 (130-400) K/uL MPV 9.0 L (9.4-12.4) fL Immature Gran % (Auto) 0.2 % Neut % (Auto) 47.4 % Lymph % (Auto) 38.5 % [place] % (Auto) 6.6 % Eos % (Auto) 5.2 % Baso % (Auto) 2.1 % Neut # (Auto) 2.67 (1.40-6.50) K/uL Lymph # (Auto) 2.17 (1.20-3.40) K/uL [place] # (Auto) 0.37 (0.11-0.59) K/uL Eos # (Auto) 0.29 (0.00-0.50) K/uL Baso # (Auto) 0.12 (0.00-0.20) K/uL Immature Gran # (Auto) 0.01 (0.01-0.20) K/uL Sodium 139 (136-145) mmol/L Potassium 3.7 (3.5-5.1) mmol/L Chloride 102 (98-107) mmol/L Carbon Dioxide 26 (21-32) mmol/L Anion Gap 11 (3-11) BUN 9 (6-23) mg/dl Creatinine 1.18 (0.6-1.4) mg/dl Est Cr Clr Drug Dosing 115.4 ml/min eGFR 84.60 BUN/Creatinine Ratio 7.6 L (10-20) Glucose 112 H (70-99(Fasting)) mg/dl Calcium 9.0 (8.6-10.3) mg/dl Magnesium 2.4 (1.7-2.4) mg/dl Total Bilirubin 0.6 (0.2-1.0) mg/dl AST 41 H (13-39) U/L ALT 41 (7-52) U/L Alkaline Phosphatase 152 H (34-104) U/L Total Protein 7.8 (6.0-8.3) gm/dl Albumin 4.7 (3.4-5.0) gm/dl Globulin 3.1 (2.5-4.0) gm/dl Albumin/Globulin Ratio 1.5 (0.9-2) Ethyl Alcohol mg/dL 149.2 H (<10.0) mg/dl Administered Medications Discontinued Medications Lorazepam (Lorazepam 1 Mg/1 Ml Syr Ed Inj Use) 0.5 mg IV ONE STA Stop: 04/18/25 08:17 Last Admin: 04/18/25 08:45 Dose: 0.5 mg Documented By: tano Miscellaneous (Stat Iv/Im) 1 each N/A NOW STA Stop: 04/18/25 09:34 Last Admin: 04/18/25 10:20 Dose: Not Given Documented By: tano Ondansetron HCl (Ondansetron Inj 2 Mg/Ml 2 Ml Vial) 4 mg IV NOW STA Stop: 04/18/25 08:17 Last Admin: 04/18/25 08:45 Dose: 4 mg Documented By: maria estheru Discharge Plan Visit Data Chief Complaint: Alcohol Withdrawal Stated Complaint: ALCOHOL WITHDRAWAL ED Provider: Amanda Ramírez Discharge Problem: Alcohol withdrawal Patient Disposition: Admitted As Inpatient Condition: Fair Forms Stand Alone Forms: [facility], Suicide Prevention Resources Prescriptions Prescriptions: No Action oxycodone 5 mg tablet 5 - 10 mg PO Q6H MDD 6 tablets PRN (Reason: post operative pain) Qty: 18 0RF Patient Comments: 04/18- last filled 03/17 3 day supply #18 allopurinol 300 mg tablet 300 mg PO QAM Patient Comments: 04/18- last filled 12/31 90 day supply #90 buspirone 10 mg tablet 10 mg PO BID lurasidone [Latuda] 80 mg tablet 80 mg PO HS Rx Instructions: must administer with food (at least 350 calories) clonazepam 1 mg tablet 1 mg PO DAILY PRN (Reason: Anxiety) prazosin 2 mg capsule 4 mg PO HS amlodipine 10 mg tablet 0 mg PO QAM Patient Comments: 04/18- last filled 11/15 90 day supply #90. original directions: 10 mg po daily. desloratadine 5 mg Tablet 5 mg PO DAILY PRN (Reason: Allergy Symptoms) albuterol sulfate 90 mcg/actuation Hfa Aerosol Inhaler 2 puff INHALATION Q6H PRN (Reason: Shortness Of Breath) Patient Comments: 04/18- no fill history unable to verify ondansetron 4 mg tablet,disintegrating 4 mg PO Q6H PRN (Reason: nausea and vomiting) Qty: 10 0RF Referrals Referrals: Ted Welch MD [Primary Care Provider] -
[2025-04-18 08:27] LABS: Hematocrit (blood only) 46.1 % (42.0-52.0); Hemoglobin 16.5 g/dL (14.0-18.0); Immature Granulocytes # (auto) 0.01 K/uL (0.01-0.20); Immature Granulocytes % (auto) 0.2 %; Mean Corpuscular Hemoglobin 31.8 pg (25.0-34.0); Mean Corpuscular Volume 88.8 fL (80.0-100.0); Platelet Count 362 K/uL (130-400); RDW Standard Deviation 42.1 fL (36.4-46.3); Red Blood Count 5.19 M/uL (4.70-6.10); White Blood Count 5.63 K/ul (4.8-10.8)
[2025-04-18] MEDS: LORazepam 1 MG/1 ML SYR ED Inj Use IV STA (08:45)
[2025-04-18] MEDS: ONDANSETRON INJ 2 MG/ML 2 ML VIAL IV STA (08:45)
[2025-04-18 08:47] LABS: Alanine Aminotransferase 41.0 U/L (7-52); Albumin Globulin Ratio 1.5 (0.9-2); Albumin Level 4.7 gm/dl (3.4-5.0); Alkaline Phosphatase 152.0 U/L (34-104); Anion Gap 11.0 (3-11); Bilirubin,Total 0.6 mg/dl (0.2-1.0); Blood Urea Nitrogen 9.0 mg/dl (6-23); Calcium 9.0 mg/dl (8.6-10.3); Carbon Dioxide 26.0 mmol/L (21-32); Chloride 102.0 mmol/L (98-107); Creatinine Clr Calc Pharmacy 115.4 ml/min; Globulin 3.1 gm/dl (2.5-4.0); Glucose 112.0 mg/dl (70-99(Fasting)); Magnesium 2.4 mg/dl (1.7-2.4); Potassium 3.7 mmol/L (3.5-5.1); Sodium 139.0 mmol/L (136-145); Total Protein 7.8 gm/dl (6.0-8.3)
[2025-04-18] MEDS: STAT IV/IM STA (10:20)
--- NOTE | 2025-04-18 10:38 | History & Physical Report ---
Date of Service April 18, 2025 Assessment & Plan (1) Alcohol withdrawal: (2) Alcohol dependence: (3) Hypertension: (4) Anxiety: (5) Post traumatic stress disorder: (6) Bipolar 2 disorder: (7) Acid reflux: Plan This is a 30 y/o male with alcohol dependence, PTSD, anxiety, bipolar d/o, HTN, gout, and other history as outlined below who presented to the ED this morning with concern for alcohol withdrawal. Pt has managed alcohol withdrawal at times previously as an outpatient but currently out of [facility] so concerned about being able to go through withdrawal safely as an outpatient. Referred for admission for management of withdrawal symptoms. #Alcohol withdrawal #Alcohol dependence - Admit to PCU - Initially ordered phenobarbital protocol in the ED - however, pt reports adverse reaction to this previously so declined to take this medication - Gabapentin protocol ordered with prn lorazepam - Recommend outpatient follow-up for possible naltrexone since this has been effective previously - Thiamine, folic acid #Hypertension - Chronic, BP elevated in the ED, likely related to withdrawal - Continue outpatient meds #GERD - Chronic, stable - Continue daily PPI #PTSD #Bipolar disorder #Anxiety - Chronic - continue outpatient regimen Pt seen and reviewed with collaborating physician, Dr. Fraser. Plan of care discussed and as outlined above. Code status: full code DVT prophylaxis: Melizax I spent a total of 75 minutes coordinating, documenting, and providing care for this patient excluding time spent in the performance of separately billed services or time spent by another provider/QHP. Christopher Reina PA-C History of Present Illness Chief Complaint: alcohol withdrawal Primary Care Provider: Ted Welch MD This is a 30 y/o male with alcohol dependence, PTSD, anxiety, bipolar d/o, HTN, gout, and other history as outlined below who presented to the ED this morning with concern for alcohol withdrawal. Pt reports he started drinking when he was in college. He has gone to inpatient rehab multiple times in the past, most recent period of sobriety was in May. He currently drinks over a fifth of alcohol daily, typically in the evenings after work so that he is functional to work the next morning. However, he reports he started drinking four days ago and has been drinking almost constantly since then. His last drink was 7 pm yesterday as he was planning to go to work today. However, this morning, he started developing withdrawal symptoms and was out of Klonopin, which he has used to manage withdrawal at home in the past. This morning, he noted chills, MCKEON, N/V, episodes of racing heart, shakiness. He denies chest pain, dizziness, hallucinations, seizures today. There is a questionable history of brief seizure activity reported to the ED provider by pt's mother - pt states that this episode in question occurred while he was drinking, not in withdrawal, and he does not recall specific seizure activity at any point when he was withdrawing. He has a history of hallucinations while drinking in the past, but not with withdrawal. He reports that his daughter four years ago - would have been her birthday so this is a difficult time of year for him. He f toribiolows with Traci Herring PA-C at [place] for psychiatry - has used naltrexone in the past and would consider again. He is not interested in inpatient rehab due to current work situation (would likely lose his job if he took the time off) - acknowledges the need to fully utilize outpatient resources such as AA meetings since inpatient rehab is not currently an option for him. Allergies Allergy/AdvReac Type Severity Reaction Status Date / Time shrimp Allergy Severe hands Verified 03/07/25 11:58 severely swelled when touching cetirizine Allergy Intermediate hives Verified 03/07/25 11:58 fexofenadine Allergy Intermediate hives Verified 03/07/25 11:58 loratadine Allergy Intermediate hives Verified 03/07/25 11:58 Home Medications Medication Instructions Recorded Confirmed Type allopurinol 300 mg tablet 300 mg PO QAM 08/09/24 04/18/25 History amlodipine 10 mg tablet 0 mg PO QAM 08/09/24 04/18/25 History buspirone 10 mg tablet 10 mg PO BID 08/09/24 04/18/25 History clonazepam 1 mg tablet 1 mg PO DAILY PRN Anxiety 08/09/24 04/18/25 History lurasidone 80 mg tablet (Latuda) 80 mg PO HS 08/09/24 04/18/25 History prazosin 2 mg capsule 4 mg PO HS 08/09/24 04/18/25 History albuterol sulfate 90 mcg/actuation 2 puff inhalation Q6H PRN 02/24/25 04/18/25 History aerosol inhaler Shortness Of Breath desloratadine 5 mg tablet 5 mg PO DAILY PRN Allergy Symptoms 02/24/25 04/18/25 History ondansetron 4 mg disintegrating 4 mg PO Q6H PRN nausea and 03/07/25 04/18/25 Rx tablet vomiting #10 tabs oxycodone 5 mg tablet 5 - 10 mg (1 - 2 x 5 mg) PO Q6H 03/17/25 04/18/25 Rx PRN post operative pain #18 tabs Past Med/Surg History Problem List (Updated 04/18/25 @ 13:10 by Jeni Reina PA-C) Alcohol withdrawal Alcohol dependence Medical History (Updated 04/18/25 @ 13:10 by Jeni Reina PA-C) Acid reflux Psoriasis Superior labrum tgnhjadb-ok-hsfrtgtpo (SLAP) tear of right shoulder Biceps rupture, proximal Partial tear of right rotator cuff Gout Bipolar 2 disorder Post traumatic stress disorder Anxiety Hypertension Alcohol withdrawal Hypothyroidism ? pt denies Asthma uses rescue inhaler a couple times of month on average Surgical History History of wisdom tooth extraction History of nasal surgery closed reduction History of arthroscopy of shoulder right Family History Father Family history of reaction to anesthesia nauseated Social History Smoking Status: Current every day smoker Tobacco Type: E-cigarettes / Vaping Cigarettes Per Day: vaps daily (advised on policy); Second Hand Exposure: No; Do You Dip or Chew Tobacco: No; Hx Alcohol Use: Yes Alcohol type: beer and hard liquor Alcohol Intake Frequency Comment: 6-8 Hx Substance Use: No Preferred Language: Danish Communication Ability: Effective [place] Required: No Beliefs That Will Affect Care: None Current Living Situation: Parent Current Living Situation Comment: lives with parents Feels Safe at Home: Yes Assistive Devices: None Review of Systems Review of Systems: All systems reviewed & are unremarkable except as noted in Subjective Physical Exam Physical Exam: General: awake, alert, NAD HEENT: no scleral icterus, moist oral mucosa Neck: supple, trachea midline Heart: RRR Lungs: CTA bilaterally Abdomen: soft, NT, +BS Extremities: no pedal edema, distal pulses intact and equal Skin: warm, dry, no jaundice Neurologic: Ox3, no confusion or dysarthria, minimal tremor in hands noted at present Results & Data Results & Data Vital Signs (Past 12 Hours) Vital Signs Temp Pulse Resp BP Pulse Ox O2 Del Method 04/18/25 10:00 82 14 136/96 96 Room Air 04/18/25 09:30 110 H 15 164/129 H 95 Room Air 04/18/25 09:12 89 21 132/86 93 Room Air 04/18/25 08:30 93 H 14 97 Room Air 04/18/25 08:16 94 H 04/18/25 08:12 94 H 17 184/120 H 100 Room Air 04/18/25 07:52 36.7 C 104 H 18 179/115 H 96 Room Air Laboratory Results Lab Results 04/18/25 Range/Units 08:13 WBC 5.63 (4.8-10.8) K/ul RBC 5.19 (4.70-6.10) M/uL Hgb 16.5 (14.0-18.0) g/dL Hct 46.1 (42.0-52.0) % MCV 88.8 (80.0-100.0) fL MCH 31.8 (25.0-34.0) pg MCHC 35.8 (32.0-36.0) g/dL RDW Std Deviation 42.1 (36.4-46.3) fL RDW Coeff of Rosas 13.0 (11.5-14.5) % Plt Count 362 (130-400) K/uL MPV 9.0 L (9.4-12.4) fL Immature Gran % (Auto) 0.2 % Neut % (Auto) 47.4 % Lymph % (Auto) 38.5 % [place] % (Auto) 6.6 % Eos % (Auto) 5.2 % Baso % (Auto) 2.1 % Neut # (Auto) 2.67 (1.40-6.50) K/uL Lymph # (Auto) 2.17 (1.20-3.40) K/uL [place] # (Auto) 0.37 (0.11-0.59) K/uL Eos # (Auto) 0.29 (0.00-0.50) K/uL Baso # (Auto) 0.12 (0.00-0.20) K/uL Immature Gran # (Auto) 0.01 (0.01-0.20) K/uL Sodium 139 (136-145) mmol/L Potassium 3.7 (3.5-5.1) mmol/L Chloride 102 (98-107) mmol/L Carbon Dioxide 26 (21-32) mmol/L Anion Gap 11 (3-11) BUN 9 (6-23) mg/dl Creatinine 1.18 (0.6-1.4) mg/dl Est Cr Clr Drug Dosing 115.4 ml/min eGFR 84.60 BUN/Creatinine Ratio 7.6 L (10-20) Glucose 112 H (70-99(Fasting)) mg/dl Calcium 9.0 (8.6-10.3) mg/dl Magnesium 2.4 (1.7-2.4) mg/dl Total Bilirubin 0.6 (0.2-1.0) mg/dl AST 41 H (13-39) U/L ALT 41 (7-52) U/L Alkaline Phosphatase 152 H (34-104) U/L Total Protein 7.8 (6.0-8.3) gm/dl Albumin 4.7 (3.4-5.0) gm/dl Globulin 3.1 (2.5-4.0) gm/dl Albumin/Globulin Ratio 1.5 (0.9-2) Ethyl Alcohol mg/dL 149.2 H (<10.0) mg/dl Medications Administered Discontinued Medications Lorazepam (Lorazepam 1 Mg/1 Ml Syr Ed Inj Use) 0.5 mg IV ONE STA Stop: 04/18/25 08:17 Last Admin: 04/18/25 08:45 Dose: 0.5 mg Documented By: tano Miscellaneous (Stat Iv/Im) 1 each N/A NOW STA Stop: 04/18/25 09:34 Last Admin: 04/18/25 10:20 Dose: Not Given Documented By: tano Ondansetron HCl (Ondansetron Inj 2 Mg/Ml 2 Ml Vial) 4 mg IV NOW STA Stop: 04/18/25 08:17 Last Admin: 04/18/25 08:45 Dose: 4 mg Documented By: tano Supervising Physician Co-Signing Physician Notes Attending addendum: The patient was seen and examined in telemetry He has history of alcohol abuse with withdrawal symptoms in the past Has been drinking more for the last 3 to 4 days and last drink at around 7 PM last evening He has been feeling changes and occasional palpitation patient Significant tremors or other symptoms of palpitation and without exacerbation Denies any unsteady in gait On examination Sitting at the edge of the bed without any acute distress Remains hemodynamically stableno tachycardia and no tachypnea Chest was clear to auscultate bilaterally HeartS1-S2, regular and no murmur Abdomenbenign Extremitiesno edema CNSalert, awake and oriented x 3. Minimal tremors involving the outstretched hands His admission labs, and medications reviewed History of alcoholism with alcohol abuse and recurrent admission for withdrawal symptoms This time having so far minimal withdrawal symptoms and he will be on gabapentin protocol in telemetry unit He does not want to go to inpatient rehab following discharge from the hospital He has outpatient psychiatrist to talk to about his anxiety medications Agree with assessment and plan as outlined above by Ya Reina PA-C and take the full responsibility of care in the hospital Total time taken to see the patient, taking history and examining the patient and also reviewing the labs and plan for the management was [address] Jessie Fraser (1) Alcohol withdrawal Complication of substance-induced condition: uncomplicated Qualified Code(s): F10.930 - Alcohol use, unspecified with withdrawal, uncomplicated (2) Alcohol dependence Substance use status: in withdrawal Complication of substance-induced condition: uncomplicated Qualified Code(s): F10.230 - Alcohol dependence with withdrawal, uncomplicated (3) Hypertension Hypertension type: unspecified Qualified Code(s): I10 - Essential (primary) hypertension (7) Acid reflux Esophagitis presence: esophagitis presence not specified Qualified Code(s): K21.9 - Gastro-esophageal reflux disease without esophagitis
[2025-04-18] MEDS ORDERED: GABAPENTIN 1200MG ALCOHOL WITHDRAWAL LOAD PO STA (11:10)
[2025-04-18] MEDS ORDERED: LORazepam Inj 3 MG in SYRINGE 1.5 ML IV PRN (11:10)
[2025-04-18] MEDS ORDERED: ONDANSETRON INJ 2 MG/ML 2 ML VIAL IV PRN (12:03)
[2025-04-18] MEDS: ACETAMINOPHEN 500 MG TAB PO PRN (12:25)
[2025-04-18] MEDS: PRAZOSIN HCL 1 MG CAP PO STA (12:38)
[2025-04-18] MEDS: GABAPENTIN 600 MG TAB PO ONE (12:57)
[2025-04-18] MEDS: FOLIC ACID 1 MG in SYRINGE 9.8 ML IV STA (13:50)
[2025-04-18] MEDS: THIAMINE HCL 100 MG in SYRINGE 9 ML IV STA (13:50)
[2025-04-18] MEDS: LORazepam Inj 1 MG in SYRINGE 0.5 ML IV PRN (16:03)
[2025-04-18] MEDS: GABAPENTIN 600 MG TAB PO SCH (17:20)
[2025-04-18] MEDS: METOPROLOL TARTRATE 1 MG/ML VIAL IV STA (18:04)
[2025-04-18] MEDS: NON-FORMULARY PATIENT'S OWN MED PO SCH (21:20)
[2025-04-18] MEDS: PRAZOSIN HCL 1 MG CAP PO SCH (21:22)
[2025-04-18] MEDS: LURASIDONE HCL 20 MG TAB PO SCH (21:22)
[2025-04-18] MEDS: LORazepam Inj 2 MG in SYRINGE 1 ML IV PRN (21:31)
[2025-04-19 06:26] LABS: Hematocrit (blood only) 41.8 % (42.0-52.0); Hemoglobin 14.8 g/dL (14.0-18.0); Immature Granulocytes # (auto) 0.01 K/uL (0.01-0.20); Immature Granulocytes % (auto) 0.2 %; Mean Corpuscular Hemoglobin 32.3 pg (25.0-34.0); Mean Corpuscular Volume 91.3 fL (80.0-100.0); Platelet Count 266 K/uL (130-400); RDW Standard Deviation 42.5 fL (36.4-46.3); Red Blood Count 4.58 M/uL (4.70-6.10); White Blood Count 4.83 K/ul (4.8-10.8)
[2025-04-19 06:50] LABS: Alanine Aminotransferase 31.0 U/L (7-52); Albumin Level 4.2 gm/dl (3.4-5.0); Alkaline Phosphatase 126.0 U/L (34-104); Anion Gap 8.0 (3-11); Bilirubin,Total 1.2 mg/dl (0.2-1.0); Blood Urea Nitrogen 9.0 mg/dl (6-23); Calcium 8.9 mg/dl (8.6-10.3); Carbon Dioxide 28.0 mmol/L (21-32); Chloride 102.0 mmol/L (98-107); Creatinine Clr Calc Pharmacy 108.2 ml/min; Glucose 103.0 mg/dl (70-99(Fasting)); Potassium 3.8 mmol/L (3.5-5.1); Sodium 138.0 mmol/L (136-145); Total Protein 6.9 gm/dl (6.0-8.3)
[2025-04-19 07:51] VITALS: RESP 16
[2025-04-19] MEDS: busPIRone 5 MG TAB PO SCH (08:54)
[2025-04-19] MEDS: FOLIC ACID 1 MG TAB PO SCH (08:54)
[2025-04-19] MEDS: THIAMINE HCL 100 MG TAB PO SCH (08:54)
[2025-04-19] MEDS: GABAPENTIN 600 MG TAB PO SCH (09:24)
[2025-04-19 10:03] VITALS: BP 152/105; PULSE 98; TEMP 97.9; O2SAT 96
--- NOTE | 2025-04-19 10:48 | Discharge Summary ---
Discharge Summary Date of Service April 19, 2025 Principal Dx & Hospital Course #1 = Principal Diagnosis (1) Alcohol withdrawal: (2) Alcohol dependence: (3) Hypertension: (4) Anxiety: (5) Post traumatic stress disorder: (6) Bipolar 2 disorder: (7) Acid reflux: Plan This is a 30 y/o male with alcohol dependence, PTSD, anxiety, bipolar d/o, HTN, gout, and other history as outlined below who presented to the ED this morning with concern for alcohol withdrawal. Pt has managed alcohol withdrawal at times previously as an outpatient but currently out of Klonopin so concerned about being able to go through withdrawal safely as an outpatient. Referred for admission for management of withdrawal symptoms. Today, he is c/o no withdrawal symptoms. He is scoring a 1 on withdrawal score. He has no complaints and is very eager to go home today. He states he has no intention of drinking and will follow with AA. He will call his psychiatrist today to ask about naltrexone. He will be Rx a very short course of prn ativan for withdrawal symptoms. he was advised to not drink or take klonopin with it. vitals and labs are stable on discharge home. he will f/u with his PCP regarding his BP Notes For Next Care Provider Medication Changes From Visit [facility] held while ativan is ordered Admission HPI Per Admitting Provider This is a 30 y/o male with alcohol dependence, PTSD, anxiety, bipolar d/o, HTN, gout, and other history as outlined below who presented to the ED this morning with concern for alcohol withdrawal. Pt reports he started drinking when he was in college. He has gone to inpatient rehab multiple times in the past, most recent period of sobriety was in May. He currently drinks over a fifth of alcohol daily, typically in the evenings after work so that he is functional to work the next morning. However, he reports he started drinking four days ago and has been drinking almost constantly since then. His last drink was 7 pm yesterday as he was planning to go to work today. However, this morning, he started developing withdrawal symptoms and was out of Klonopin, which he has used to manage withdrawal at home in the past. This morning, he noted chills, MCKEON, N/V, episodes of racing heart, shakiness. He denies chest pain, dizziness, hallucinations, seizures today. There is a questionable history of brief seizure activity reported to the ED provider by pt's mother - pt states that this episode in question occurred while he was drinking, not in withdrawal, and he does not recall specific seizure activity at any point when he was withdrawing. He has a history of hallucinations while drinking in the past, but not with withdrawal. He reports that his daughter four years ago - day would have been her birthday so this is a difficult time of year for him. He follows with Traci Herring PA-C at [facility] for psychiatry - has used naltrexone in the past and would consider again. He is not interested in inpatient rehab due to current work situation (would likely lose his job if he took the time off) - acknowledges the need to fully utilize outpatient resources such as AA meetings since inpatient rehab is not currently an option for him. Discharge Exam Vitals and labs reviewed General: Well appearing, NAD HEENT: EOMI, PERRLA Neck: Supple Cardiac: RRR no rubs gallops or murmurs Lungs: CTA no rhonchi wheezing or rales Abd: S NT ND BS positive : Deffered MSK: Full ROM. No obvious deformities Ext: No Edema cyanosis Skin: Warm, Dry Neuro: AOx3 No focal deficits. no tremors Psych: Normal Mood Updated Medication List Medication Instructions Recorded Confirmed Type allopurinol 300 mg tablet 300 mg PO QAM 08/09/24 04/18/25 History amlodipine 10 mg tablet 10 mg PO QAM 08/09/24 04/18/25 History buspirone 10 mg tablet 10 mg PO QAM 08/09/24 04/18/25 History clonazepam 1 mg tablet 1 mg PO DAILY PRN Anxiety 08/09/24 04/18/25 History lurasidone 80 mg tablet (Latuda) 80 mg PO HS 08/09/24 04/18/25 History prazosin 2 mg capsule 4 mg PO HS 08/09/24 04/18/25 History albuterol sulfate 90 mcg/actuation 2 puff inhalation Q6H PRN 02/24/25 04/18/25 History aerosol inhaler Shortness Of Breath desloratadine 5 mg tablet 5 mg PO HS 02/24/25 04/18/25 History ondansetron 4 mg disintegrating 4 mg PO Q6H PRN nausea and 03/07/25 04/18/25 Rx tablet vomiting #10 tabs omeprazole 20 mg tablet,delayed 20 mg PO DAILY 04/18/25 04/18/25 History release lorazepam 0.5 mg tablet (Ativan) 0.5 mg PO Q8 PRN anxiety 5 days #9 04/19/25 Rx tabs Hospital Stay Data Consultations 04/18/25 10:20 ED Decision to Admit Stat Pending Results Patient Have Any Pending Studies at Discharge: No Discharge Instructions Given to Patient (Per Discharging Provider) Please contact your psychiatrist about prescribing naltrexone as we discussed. Please see support groups such as AA as much as possible. Take ativan only if you develop withdarwal symptoms. Absolutely do not take with any alcohol. Do not take with klonopin. Please follow up with your PCP in 1-2 weeks regarding your high blood pressure. Total Time Total Time Spent Total Time Spent (In Minutes): 45
--- NOTE | 2025-04-19 19:05 | Electrocardiogram Report ---
Test Reason : Blood Pressure : */* mmHG Vent. Rate : 88 BPM Atrial Rate : 88 BPM P-R Int : 138 ms QRS Dur : 92 ms QT Int : 372 ms P-R-T Axes : 22 18 46 degrees QTcB Int : 450 ms Normal sinus rhythm Normal ECG When compared with ECG of 25-Mar-2022 10:37, No significant change was found Confirmed by Rom Sifuentes ([id number]) on 04/19/2025 7:04:56 PM Referred By: REFERRED SELF Confirmed By: Rom Sifuentes
[2025-04-20] MEDS ORDERED: GABAPENTIN 600 MG TAB PO SCH (11:15)
[2025-04-21] MEDS ORDERED: GABAPENTIN 600 MG TAB PO SCH (23:15)
== END 2025-04-19 12:16 | disposition home or self-care (01) | DRG 897 ==
LOC: ED 07:47 → 2E 10:39 → SUATTDRO 10:39 → 2E 12:08